=== PATIENT | female | born 1935 | race Caucasian/White ===

== ENCOUNTER 2016-09-05 23:02 | Emergency (ER) | payer OTHER ==
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
--- NOTE | 2016-09-06 00:08 | CT SCAN REPORT ---
EXAMINATION: CT HEAD WITHOUT CONTRAST CLINICAL INFORMATION: Altered mental status. EtOH. COMPARISON: None TECHNIQUE: Contiguous axial imaging was performed from the skull base to vertex without intravenous administration of contrast. DLP: 610.15 mGy-cm FINDINGS: There is no evidence of acute intracranial hemorrhage or territorial infarction. No abnormal mass effect or midline shift is seen. Escalera to white matter differentiation is well preserved. No extra-axial fluid collections are identified. There is atrophy with prominence of the ventricles and the sulci and hypodensity of the periventricular white matter due to chronic small vessel ischemic disease. There is vascular calcifications of the internal carotid arteries bilaterally. The osseous structures and soft tissues are normal. The mastoid air cells and visualized portions of the paranasal sinuses are well aerated. IMPRESSION: No acute intracranial pathology.
[2016-09-06 00:32] LABS: ABSOLUTE BASOPHIL COUNT 0 /CUMM (0.0-0.2); ABSOLUTE EOSINOPHIL COUNT 0.1 /CUMM (0.0-0.7); ABSOLUTE GRANULOCYTE CT 4.8 /CUMM (1.4-6.5); ABSOLUTE LYMPH COUNT 1.6 /CUMM (1.2-3.4); ABSOLUTE MONOCYTE COUNT 0.6 /CUMM (0.10-0.60); BASOPHIL % 0.5 % (0.0-2.0); EOSINOPHIL % 2.1 % (0-5); GRANULOCYTE % 67.3 % (42.2-75.2); HEMATOCRIT 30.1 % (37-47); MEAN CORPUSCULAR HGB 24.7 PG (27.0-31.0); MEAN CORPUSCULAR HGB CONC 31.5 G/DL (33.0-37.0); MEAN CORPUSCULAR VOLUME 78.4 FL (81.0-99.0); PLATELET COUNT 397 /CUMM (130-400); RBC DISTRIBUTION WIDTH 14.7 % (11.5-14.5); RED BLOOD CELL CT 3.84 /CUMM (4.20-5.40); WHITE BLOOD CELL COUNT 7.2 /CUMM (4.8-10.8)
[2016-09-06 07:50] VITALS: BP 126/84
== END 2016-09-06 08:00 ==
LOC: ERH 23:02
PROVIDERS: Physician Assistant Medical
DX: F10.129 Alcohol abuse with intoxication, unspecified (principal)
CPT/HCPCS: 80307; G0480

== ENCOUNTER 2016-11-13 14:40 | Emergency (ER) | payer OTHER ==
[~2016-11-13] VITALS: Ht 162.6 cm; Wt 50.3 kg
[2016-11-13] MEDS ORDERED: LIALDA1.2 G1 PO (15:09)
[2016-11-13] MEDS ORDERED: SLOW FE142 MG PO (15:09)
--- NOTE | 2016-11-13 15:09 | ED GENERAL ADULT ---
History of Present Illness General Chief Complaint: Headache Stated Complaint: AGGARWAL/CHILLS Source: patient, old records, friend Exam Limitations: no limitations Vital Signs & Intake/Output Vital Signs & Intake/Output Vital Signs Date Time Temp Pulse Resp B/P B/P Pulse O2 O2 Flow FiO2 Mean Ox Delivery Rate 11/13 1704 99.3 93 18 97/50 95 Room Air 11/13 1653 101.6 95 18 116/57 96 Room Air Room Air 11/13 1620 100.3 11/13 1545 102.2 11/13 1445 102.2 104 20 188/77 96 Room Air Allergies Coded Allergies: meperidine (From DEMEROL) (UNKNOWN 09/05/16) Uncoded Allergies: ?ADDITIONAL ALLERGY (06/10/15) Reconcile Medications Cyanocobalamin (Vitamin B-12) (Cyanocobalamin Injection) 1,000 MCG/ML VIAL 1 ML IM Q 2 WEEKS SUPPLEMENT (Reported) Donepezil HCl (Aricept) 5 MG TABLET 1 TAB PO DAILY MEMORY (Reported) Ferrous Sulfate (Slow Fe) 142 MG (45 MG IRON) TABLET.ER 1 TAB PO DAILY SUPPLEMENT (Reported) Mesalamine (Lialda) 1.2 GRAM TABLET.DR 4 TAB PO DAILY UNKNOWN (Reported) [employer] Fatty Acids/Fish Oil (Fish Oil 1,000 MG Capsule) 340 MG-1,000 MG CAPSULE 1 CAP PO DAILY SUPPLEMENT (Reported) Triage Note: PER PT SUDDEN ONSET OF CHILLS, AND HEADACHE,PT CONSERVATOR AT BEDSIDE, D/T MEMORY IMPAIRMENT, PT ALERT CO BILAT ARM PAIN TEMP 102.2 Triage Nurses Notes Reviewed? yes HPI: Patient was out shopping today when she developed shaking chills. She also began to complain of a headache in both temples that radiated down to her left ear and then down both arms. The headache is throbbing in nature. There are no aggravating or mitigating factors. It radiates as noted above. She rates it as a 4 out of 10. Patient denies any nausea or vomiting. Patient has had a slight nonproductive cough. There is no dysuria. There is no chest pain. Past History Travel History Traveled to [place] past 21 day No Medical History Any Pertinent Medical History? 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 No Review of Systems Review of Systems Constitutional: Reports: see HPI, chills, fever, weakness. EENTM: Reports: no symptoms. Respiratory: Reports: no symptoms. Cardiovascular: Reports: no symptoms. GI: Reports: no symptoms. Genitourinary: Reports: no symptoms. Musculoskeletal: Reports: no symptoms. Skin: Reports: no symptoms. Neurological/Psychological: Reports: see HPI, headache. Hematologic/Endocrine: Reports: no symptoms. Immunologic/Allergic: Reports: no symptoms. All Other Systems: Reviewed and Negative Physical Exam Physical Exam General Appearance: well developed/nourished, alert, awake, anxious, mild distress Head: atraumatic, normal appearance Eyes: Bilateral: PERRL, EOMI. Ears, Nose, Throat: normal pharynx, normal ENT inspection, hearing grossly normal Neck: normal inspection, supple, full range of motion, NO MENENGEAL SIGNS Respiratory: normal breath sounds, chest non-tender, no respiratory distress, lungs clear Cardiovascular: regular rate/rhythm, normal peripheral pulses, systolic murmur Gastrointestinal: normal bowel sounds, soft, non-tender, no organomegaly Back: normal inspection, normal range of motion Extremities: normal inspection, normal capillary refill, normal range of motion, no edema Neurologic/Psych: no motor/sensory deficits, awake, alert, oriented x 3, normal mood/affect Skin: intact, normal color, warm/dry Lymphatic: no anterior cervical janet Core Measures ACS in differential dx? No CVA/TIA Diagnosis: No Severe Sepsis Present: No Septic Shock Present: No Progress Differential Diagnoses I considered the following diagnoses in my evaluation of the patient: [SEPSIS, BACTEREMIA, UTI, PNEUMONIA, VIRAL SYNDROME] Plan of Care: Orders Procedure Date/time Status RAPID VIRAL INFLUENZA A 11/13 1511 Complete Straight Cath 11/13 1508 Active CULTURE,URINE 11/13 1508 Active BLOOD CULTURE 11/13 1508 Active URINALYSIS 11/13 1508 Complete COMPREHENSIVE METABOLIC PANEL 11/13 1508 Complete CBC WITHOUT DIFFERENTIAL 11/13 1508 Complete EKG 11/13 1454 Active Laboratory Tests 11/13/16 1605: Urine Color YEL, Urine Clarity CLEAR, Urine pH 6.0, Ur Specific [place] 1.025, Urine Protein NEG, Urine Ketones TRACE H, Urine Nitrite NEG, Urine Bilirubin NEG, Urine Urobilinogen 0.2, Ur Leukocyte Esterase NEG, Ur Microscopic EXAM NOT REQUIRED, Urine Hemoglobin NEG, Urine Glucose NEG 11/13/16 1529: Anion Gap 15, Estimated GFR > 60, BUN/Creatinine Ratio 17.1, Glucose 88, Calcium 8.9, Total Bilirubin 0.7, AST 30, ALT 30, Alkaline Phosphatase 70, Total Protein 7.5, Albumin 4.2, Globulin 3.3, Albumin/Globulin Ratio 1.3, CBC w Diff NO MAN DIFF REQ, RBC 4.63, MCV 77.4 L, MCH 24.4 L, RDW 21.7 H, MPV 7.6, Gran % 93.7 H, Lymphocytes % 3.7 L, Monocytes % 1.1 L, Eosinophils % 1.4, Basophils % 0.1, Absolute Granulocytes 7.3 H, Absolute Lymphocytes 0.3 L, Absolute Monocytes 0.1 L, Absolute Eosinophils 0.1, Absolute Basophils 0, PUBS MCHC 31.5 L Microbiology 11/13 1640 NASOPHARYN: Influenza Virus A & B Rapid Smear - COMP 11/13 1605 URINE ROUT: Urine Culture - RECD 11/13 1601 BLOOD: Blood Culture - RECD 11/13 1529 BLOOD: Blood Culture - RECD Diagnostic Imaging: Viewed by Me: Radiology Read. Discussed w/RAD: Radiology Read. CXR Impression: PATIENT: REJI BASSETT PRESENT AGE: 80 PATIENT ACCOUNT NO: [id number] : 37 LOCATION: [facility] ORDERING PHYSICIAN: ANGELIA GUTIERREZ MD SERVICE DATE: 11/13/160176 EXAM TYPE: RAD - XRY-PORTABLE CHEST XRAY EXAMINATION: XR PORTABLE CHEST CLINICAL INFORMATION: Cough, fever. Evaluate for pneumonia. COMPARISON: No relevant prior studies are available for comparison. TECHNIQUE: Portable AP view of the chest was obtained. FINDINGS: No airspace consolidation. No pleural effusion or pneumothorax. The cardiomediastinal silhouette is unremarkable. Severe degenerative changes within the bilateral glenohumeral joints. IMPRESSION: No airspace consolidation. DICTATED BY: JAMISON DELCID MD DATE/TIME DICTATED:11/13/161607 PILOT SAFETY INSPECTOR:JOSE ROBERTO DATE/TIME TRANSCRIBED:11/13/161607 CONFIDENTIAL, DO NOT COPY WITHOUT APPROPRIATE AUTHORIZATION. <Electronically signed in Other Vendor System> SIGNED BY: JAMISON DELCID MD 11/13/16 0881 Initial ED EKG: S TACH, NO STT CHANGES. Comments: Patient is feeling much better. There are no more chills. Her headache and her left earache and bilateral arm pain have resolved. Patient feels comfortable going home. Departure Departure Disposition: HOME OR SELF CARE Condition: Stable Clinical Impression Primary Impression: Fever Secondary Impressions: Viral syndrome Referrals: ELA HODGES,ASH Castillo (PCP/Family) Additional Instructions: DRINK PLENY OF FLUIDS TAKE TYLENOL 650MG EVERY 6 HOURS OR 1000MG EVERY 8 HOURS NEEDED FOR FEVER TAKE MOTRIN 400 MG (2 TABS) EVERY 8 HOURS NEEDED FOR FEVER RETURN FOR ANY CONCERNS Departure Forms: Customer Survey General Discharge Information Critical Care Note Critical Care Note Critical Care Time: non-applicable
[2016-11-13] MEDS ORDERED: FISH OIL 1,0001 EACH PO (15:10)
[2016-11-13] MEDS ORDERED: ARICEPT5 M1 PO (15:10)
[2016-11-13] MEDS ORDERED: CYANOCOBAL1000 MCG/2 IM (15:11)
[2016-11-13 15:41] LABS: ABSOLUTE BASOPHIL COUNT 0 /CUMM (0.0-0.2); ABSOLUTE EOSINOPHIL COUNT 0.1 /CUMM (0.0-0.7); ABSOLUTE GRANULOCYTE CT 7.3 /CUMM (1.4-6.5); ABSOLUTE LYMPH COUNT 0.3 /CUMM (1.2-3.4); ABSOLUTE MONOCYTE COUNT 0.1 /CUMM (0.10-0.60); BASOPHIL % 0.1 % (0.0-2.0); EOSINOPHIL % 1.4 % (0-5); GRANULOCYTE % 93.7 % (42.2-75.2); HEMATOCRIT 35.8 % (37-47); MEAN CORPUSCULAR HGB 24.4 PG (27.0-31.0); MEAN CORPUSCULAR HGB CONC 31.5 G/DL (33.0-37.0); MEAN CORPUSCULAR VOLUME 77.4 FL (81.0-99.0); MEAN PLATELET VOLUME 7.6 FL (7.4-10.4); PLATELET COUNT 228 /CUMM (130-400); RBC DISTRIBUTION WIDTH 21.7 % (11.5-14.5); RED BLOOD CELL CT 4.63 /CUMM (4.20-5.40)
[2016-11-13 16:05] LABS: WHITE BLOOD CELL COUNT 7.8 /CUMM (4.8-10.8)
--- NOTE | 2016-11-13 16:15 | RADIOLOGY REPORT ---
EXAMINATION: XR PORTABLE CHEST CLINICAL INFORMATION: Cough, fever. Evaluate for pneumonia. COMPARISON: No relevant prior studies are available for comparison. TECHNIQUE: Portable AP view of the chest was obtained. FINDINGS: No airspace consolidation. No pleural effusion or pneumothorax. The cardiomediastinal silhouette is unremarkable. Severe degenerative changes within the bilateral glenohumeral joints. IMPRESSION: No airspace consolidation.
[2016-11-13 17:04] VITALS: BP 97/50
== END 2016-11-13 17:50 ==
LOC: ERH 14:40
PROVIDERS: Emergency Medicine
DX: B34.9 Viral infection, unspecified (principal); R50.9 Fever, unspecified; R05 Cough
CPT/HCPCS: 81003; 87040; 87086; 87804; 87804-59; 93005; 93010; 96374; J0131

== ENCOUNTER 2016-11-14 16:19 | Inpatient (IN) | payer OTHER ==
[~2016-11-14] VITALS: Ht 152.4 cm; Wt 50.3 kg
[~2016-11-14 16:19] MED LIST: ARICEPT5 M1 PO; CYANOCOBAL1000 MCG/2 IM; FISH OIL 1,0001 EACH PO; LIALDA1.2 G1 PO; SLOW FE142 MG PO
--- NOTE | 2016-11-14 16:25 | NUR ---
PT HERE FOR ADMIT FOR SEPSIS PER DR. MAHMOOD. PT IN ED FOR SAME S/S YESTERDAY AND WOULD LIKE PT ADMITED.
--- NOTE | 2016-11-14 17:06 | NUR ---
PT FRIEND TO ROOM STATES PT'S PAIN IN HER EARS IS GETTING WORSE DR. DIETZ AWARE PT GIVEN APAP
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
--- NOTE | 2016-11-14 17:38 | ED GENERAL ADULT ---
History of Present Illness General Chief Complaint: General Adult Stated Complaint: CHILLS Source: patient, family Exam Limitations: no limitations Allergies Coded Allergies: meperidine (From DEMEROL) (UNKNOWN 09/05/16) Reconcile Medications Cyanocobalamin (Vitamin B-12) (Cyanocobalamin Injection) 1,000 MCG/ML VIAL 1 ML IM Q 2 WEEKS SUPPLEMENT (Reported) Donepezil HCl (Aricept) 5 MG TABLET 1 TAB PO DAILY MEMORY (Reported) Ferrous Sulfate (Slow Fe) 142 MG (45 MG IRON) TABLET.ER 1 TAB PO DAILY SUPPLEMENT (Reported) Mesalamine (Lialda) 1.2 GRAM TABLET.DR 4 TAB PO DAILY UNKNOWN (Reported) Waverly-3 Fatty Acids/Fish Oil (Fish Oil 1,000 MG Capsule) 340 MG-1,000 MG CAPSULE 1 CAP PO DAILY SUPPLEMENT (Reported) Triage Note: PT HERE FOR ADMIT FOR SEPSIS PER DR. MAHMOOD. PT IN ED FOR SAME S/S YESTERDAY AND WOULD LIKE PT ADMITED. Triage Nurses Notes Reviewed? yes Onset: Abrupt Duration: day(s): Timing: recent history HPI: 11/14/16 6:30 PM This is a 80-year-old female who presents to the emergency department for fever, chills, rigors, she also has prollyarthralgias, left ear pain, and back pain. The onset of the symptoms were abrupt, the duration has been 72 hours, the severity is significant as his symptoms required her to come to the emergency department for care. The patient was seen and evaluated here yesterday. She was also seen by her primary care doctor today. He advised her to come to the hospital for admission. (AMY DIETZ DO) Vital Signs & Intake/Output Vital Signs & Intake/Output Vital Signs Date Time Temp Pulse Resp B/P B/P Pulse O2 O2 Flow FiO2 Mean Ox Delivery Rate 11/15 1522 98.9 84 20 120/70 94 Room Air 11/15 0602 99.8 83 20 100/58 98 Room Air 11/14 2330 Room Air 11/14 2322 99.1 85 20 100/58 95 Room Air 11/14 2228 98.8 88 18 96/56 94 Room Air 11/14 2051 100.6 11/14 2008 100.7 95 18 110/57 96 Room Air 11/14 1709 99.6 11/14 1709 99.6 ED Intake and Output 11/15 0000 11/14 1200 Intake Total 1300 Output Total Balance 1300 Intake, IV 1000 Intake, Oral 300 Patient 111 lb Weight Weight Reported by Patient Measurement Method Past History Travel History Traveled to [place] past 21 day No Medical History Any Pertinent Medical History? see below for history Neurological: MEMORY PROBLEMS EENT: NONE Cardiovascular: hyperlipidemia Respiratory: NONE Gastrointestinal: colitis Hepatic: NONE Renal: NONE Musculoskeletal: disk herniation Psychiatric: NONE Endocrine: NONE Blood Disorders: anemia Cancer(s): NONE FURNITURE PAINTER/Reproductive: NONE Surgical History Surgical History: non-contributory, N Psychosocial History What is your primary language [place] Tobacco Use: Never used ETOH Use: occasional use Illicit Drug Use: denies illicit drug use Family History Hx Contributory? No (AMY DIETZ DO) Review of Systems Review of Systems Constitutional: Reports: fever, malaise, weakness. EENTM: Reports: ear pain. Respiratory: Denies: short of breath. Cardiovascular: Denies: chest pain. GI: Denies: abdominal pain. Genitourinary: Reports: no symptoms. Musculoskeletal: Reports: joint pain, muscle pain. Skin: Reports: no symptoms. Neurological/Psychological: Denies: headache. Hematologic/Endocrine: Denies: bruising, bleeding. (AMY DIETZ DO) Physical Exam Physical Exam General Appearance: alert, awake, anxious, moderate distress Head: atraumatic, normal appearance Eyes: Bilateral: normal appearance, PERRL, EOMI. Ears, Nose, Throat: normal pharynx, normal ENT inspection, LEFT TM NORMAL Neck: normal inspection, supple, full range of motion Respiratory: chest non-tender, no respiratory distress Cardiovascular: regular rate/rhythm Peripheral Pulses: 4+ radial (R), 4+ radial (L) Gastrointestinal: soft, non-tender Back: decreased range of motion, TENDERNESS LUMBAR SPINE Extremities: normal inspection, normal range of motion, no edema Neurologic/Psych: no motor/sensory deficits, awake, alert, oriented x 3 Skin: intact, normal color, warm/dry Core Measures ACS in differential dx? No CVA/TIA Diagnosis: No Severe Sepsis Present: No Septic Shock Present: No (AMY DIETZ DO) Progress Differential Diagnoses I considered the following diagnoses in my evaluation of the patient: [ Diverticulitis, sepsis, intra-abdominal abscess, discitis, epidural abscess, viral syndrome] Initial ED EKG: NSR (AMY DIETZ DO) Plan of Care: Orders Procedure Date/time Status CBC WITHOUT DIFFERENTIAL 11/16 0600 Active BASIC ELECTROLYTES PLUS BUN&CR 11/16 0600 Active Regular Diet 11/15 B Active House Staff 11/15 0734 Active THYROID STIMULATING HORMONE 11/15 0700 Complete CORTISOL AM 11/15 0700 Complete CBC WITHOUT DIFFERENTIAL 11/15 0600 Complete BASIC ELECTROLYTES PLUS BUN&CR 11/15 0600 Complete PT Evaluate & Treat 11/15 UNK Active PT EVAL LOW COMPLEX 20 MIN 11/15 UNK Complete Gait Training 11/15 UNK Complete Lab Add-on Test 11/15 UNK Active Patient Safety Monitor 11/15 UNK Active Vital Signs 11/14 2348 Complete Teach/Educate 11/14 234 Active Pain Treatment and Response 11/14 234 Active Nutritional Intake, Monitor 11/14 234 Active Isolation 11/14 2348 Active Intake & Output 11/14 2348 Complete Patient Care Conference 11/14 2348 Active Activity/Ambulation 11/14 2348 Active Intake & Output 11/14 2236 Active Pathway - chart 11/14 2154 Active Pathway - chart 11/14 215 Active House Staff 11/14 215 Active Saline Lock 11/14 2146 Active Misc Message 11/14 2146 Active ED Holding Orders 11/14 2146 Active Admit to inpatient 11/14 2146 Active Vital Signs 11/14 2146 Active Code Status 11/14 2146 Active Patient Data 11/14 211 Active Patient Data 11/14 205 Active Add-on Test (ER Only) 11/14 2044 Active RAPID VIRAL INFLUENZA A 11/14 2016 Complete WESTERGREN SED RATE 11/14 1916 Complete Add-on Test (ER Only) 11/14 1843 Active COMPREHENSIVE METABOLIC PANEL 11/14 1843 Complete CBC WITHOUT DIFFERENTIAL 11/14 1843 Complete EKG 11/14 1843 Active URINE TOTAL PROT/CREAT RATIO 11/14 1745 Complete URINE LYTES, SPOT 11/14 1745 Complete CULTURE,URINE 11/14 1741 Active URINALYSIS 11/14 1741 Complete VTE Mechanical Prophylaxis 11/14 UNK Active Current Medications Sig/Isael Start time Last Medication Dose Stop Time Status Admin Cyanocobalamin 1,000 MCG Q 2 WEEKS 11/28 1000 AC (Vitamin B12) Enoxaparin Sodium 40 MG 1500 11/15 1502 AC (Lovenox) Donepezil HCl 5 MG DAILY 11/15 1000 AC 11/15 (Aricept) 0924 Ferrous Sulfate 325 MG DAILY 11/15 1000 AC 11/15 (Feosol) 0924 Fish Oil 1,050 MG DAILY 11/15 1000 AC 11/15 (Waverly-3) 0924 Mesalamine 2,400 MG DAILY 11/15 1000 AC 11/15 (Delzicol) 09 Acetaminophen 650 MG Q6P PRN 11/14 220 AC (Tylenol) Acetaminophen 1,000 MG ONCE ONE 11/14 184 CAN (Ofirmev) 11/14 184 Laboratory Tests 11/15/16 0700: Anion Gap 9, Estimated GFR > 60, BUN/Creatinine Ratio 26.7 H, TSH 3.080, Cortisol AM Sample 22.6, CBC w Diff MAN DIFF ORDERED, RBC 4.33, MCV 77.5 L, MCH 24.9 L, RDW 21.9 H, MPV 8.2, Gran % 88.2 H, Lymphocytes % 5.6 L, Monocytes % 4.2, Eosinophils % 2.0, Basophils % 0 L, Absolute Granulocytes 3.5, Segmented Neutrophils 71, Band Neutrophils 17 H, Absolute Lymphocytes 0.2 L, Lymphocytes 6 L, Monocytes 4, Absolute Monocytes 0.2, Eosinophils 2, Absolute Eosinophils 0.1, Absolute Basophils 0, Platelet Estimate ADEQUATE, Hypochromic-Microcytic 1+ , Microcytic Cells 1+, PUBS MCHC 32.1 L 11/15/16 0600: Ur Random Creatinine Cancelled, U Random Total Protein Cancelled, Ur Random Sodium Cancelled, Ur Random Potassium Cancelled, Fraction Sodium Excret Cancelled 11/14/16 1916: Anion Gap 9, Estimated GFR > 60, BUN/Creatinine Ratio 28.3 H, Glucose 93, Calcium 8.3 L, Total Bilirubin 0.5, AST 40 H, ALT 39, Alkaline Phosphatase 66, Total Protein 6.1 L, Albumin 3.2 L, Globulin 2.9, Albumin/Globulin Ratio 1.1, CBC w Diff NO MAN DIFF REQ, RBC 4.05 L, MCV 76.9 L, MCH 24.7 L, RDW 21.7 H, MPV 7.3 L, Gran % 94.1 H, Lymphocytes % 2.7 L, Monocytes % 1.1 L, Eosinophils % 2.1, Basophils % 0 L, Absolute Granulocytes 5.5, Absolute Lymphocytes 0.2 L, Absolute Monocytes 0.1 L, Absolute Eosinophils 0.1, Absolute Basophils 0, PUBS MCHC 32.2 L, ESR Westergren 9 11/14/161744: Urine Color YEL, Urine Clarity CLEAR, Urine pH 5.5, Ur Specific [place] >= 1.030 , Urine Protein 100 H, Urine Ketones NEG, Urine Nitrite NEG, Urine Bilirubin NEG, Urine Urobilinogen 0.2, Ur Leukocyte Esterase NEG, Ur Microscopic SEDIMENT EXAMINED, Urine RBC 1-3, Urine WBC 1-3 H, Ur Epithelial Cells FEW, Urine Bacteria MANY H, Hyaline Casts 1-3 H, Granular Casts 1-3 H, Urine Hemoglobin NEG, Urine Glucose NEG 11/14/161744: Ur Random Creatinine 133.4, U Random Total Protein 55 H, Ur Random Sodium 85, Ur Random Potassium 75.8, Protein/Creatinin Ratio 0.4 H, Fraction Sodium Excret 0.3 Microbiology 11/14 2046 NASOPHARYN: Influenza Virus A & B Rapid Smear - COMP 11/14 1744 URINE ROUT: Urine Culture - RES Departure Departure Disposition: STILL A PATIENT Condition: Stable Referrals: ELA HODGES,ASH Castillo (PCP/Family) Departure Forms: Customer Survey General Discharge Information Admission Note Spoke With: ASH MAHMOOD MD Documentation of Exam: Documentation of any treatments & extenuating circumstances including Concerns Regarding Discharge (functional status, medication knowledge or non-compliance, living conditions, etc.) that warrant an admission rather than observation: [The patient needs admission for IV fluids, IV analgesics, antipyretics, further evaluation to rule out sepsis] Patient signed out to Dr. Prater at 7 PM (AMY DIETZ DO) Departure Clinical Impression Primary Impression: Hyponatremia Secondary Impressions: SIRS (systemic inflammatory response syndrome) Admission Note Documentation of Exam: Documentation of any treatments & extenuating circumstances including Concerns Regarding Discharge (functional status, medication knowledge or non-compliance, living conditions, etc.) that warrant an admission rather than observation: Pt with hyponatremia, meets criteria for SIRS, and has failed outpatient management , and will likely need more than a [address] mahmood (HEATH HODGES,AJIT Cardona) Critical Care Note Critical Care Note Critical Care Time: non-applicable (AMY DIETZ DO)
--- NOTE | 2016-11-14 19:19 | NUR ---
LABS DRAWN AND SENT TO LAB SST, LAV, AND BLUE DRAWN AND SENT
[2016-11-14 19:30] LABS: ABSOLUTE BASOPHIL COUNT 0 /CUMM (0.0-0.2); ABSOLUTE EOSINOPHIL COUNT 0.1 /CUMM (0.0-0.7); ABSOLUTE GRANULOCYTE CT 5.5 /CUMM (1.4-6.5); ABSOLUTE LYMPH COUNT 0.2 /CUMM (1.2-3.4); ABSOLUTE MONOCYTE COUNT 0.1 /CUMM (0.10-0.60); BASOPHIL % 0 % (0.0-2.0); EOSINOPHIL % 2.1 % (0-5); HEMATOCRIT 31.1 % (37-47); MEAN CORPUSCULAR HGB 24.7 PG (27.0-31.0); MEAN CORPUSCULAR HGB CONC 32.2 G/DL (33.0-37.0); MEAN CORPUSCULAR VOLUME 76.9 FL (81.0-99.0); MEAN PLATELET VOLUME 7.3 FL (7.4-10.4); PLATELET COUNT 175 /CUMM (130-400); RBC DISTRIBUTION WIDTH 21.7 % (11.5-14.5); RED BLOOD CELL CT 4.05 /CUMM (4.20-5.40); WHITE BLOOD CELL COUNT 5.8 /CUMM (4.8-10.8)
[2016-11-14 19:42] LABS: GRANULOCYTE % 94.1 % (42.2-75.2)
--- NOTE | 2016-11-14 19:45 | NUR ---
IV EST, PT MEDICATED WITH TORADOL PER EMAR FOR FEVER AND BILAT EAR PAIN. NS INFUSING PER EMAR.
--- NOTE | 2016-11-14 20:09 | RADIOLOGY REPORT ---
EXAMINATION: XR PORTABLE CHEST CLINICAL INFORMATION: Fever and right gutters. COMPARISON: Chest x-ray 11/13/2016. TECHNIQUE: Portable frontal view of the chest was obtained. FINDINGS: The lungs are well-expanded and clear without focal airspace consolidation. No pleural effusions or pneumothoraces are identified. Cardiomediastinal contours are within normal limits. Soft tissues are unremarkable. No acute osseous abnormality is identified. Redemonstrated are severe degenerative changes involving the bilateral glenohumeral joints. IMPRESSION: No acute pulmonary process.
--- NOTE | 2016-11-14 20:22 | NUR ---
PT TO CAT SCAN BY STRETCHER.
--- NOTE | 2016-11-14 20:51 | NUR ---
PT RETURNED FROM CT, FLU SWAB OBTAINED AND SENT TO LAB.
--- NOTE | 2016-11-14 21:04 | CT SCAN REPORT ---
EXAMINATION: CT HEAD WITHOUT CONTRAST CLINICAL INFORMATION: Headache. COMPARISON: CT scan of the head 09/05/2016. TECHNIQUE: Contiguous axial imaging was performed from the skull base to vertex without intravenous administration of contrast. DLP: 600.71 mGy-cm FINDINGS: There is no acute intracranial hemorrhage or abnormal extra-axial collection. No intracranial mass effect or midline shift. Lateral and third ventricles are slightly prominent and there is proportionate prominence of the subarachnoid spaces reflecting a mild degree of global parenchymal volume loss. There is ill-defined hypoattenuation within the periventricular white matter that most likely represents a chronic manifestation of small vessel ischemia. Escalera-white matter differentiation is grossly preserved and there is no evidence of acute territorial infarct. The calvarium and skull base are intact. Mastoid air cells and middle ear cavities are well aerated. There is mild paranasal sinus disease within ethmoid air cells and sphenoid sinus. IMPRESSION: There is mild global parenchymal volume loss and chronic small vessel ischemic changes within the periventricular white matter. No evidence of acute territorial infarct or hemorrhage.
--- NOTE | 2016-11-14 21:27 | CT SCAN REPORT ---
EXAMINATION: CT ABDOMEN AND PELVIS WITHOUT CONTRAST CLINICAL INFORMATION: Fever and right wrist. Evaluate for diverticulitis. COMPARISON: CT abdomen and pelvis without contrast 06/10/2015. TECHNIQUE: Multidetector volumetric imaging was performed from the superior aspect of the liver through the pubic symphysis. Sagittal and coronal reformatted images were obtained on the technologist's workstation. DLP: 231 mGy-cm FINDINGS: Limited evaluation of the solid abdominal viscera in the absence of intravenous contrast. LUNG BASES: Bibasilar subsegmental atelectasis. LIVER, GALLBLADDER, AND BILIARY TREE: The liver is normal in size, shape, and attenuation. No focal hepatic lesion or biliary ductal dilatation is present. The gallbladder is unremarkable without evidence of radiopaque gallstones, gallbladder wall thickening, or obvious pericholecystic inflammatory changes. PANCREAS: Unremarkable. SPLEEN: Unremarkable. ADRENAL GLANDS: Unremarkable. KIDNEYS AND URETERS: Evaluation of the bilateral kidneys and renal collecting systems is notable for several right-sided simple renal cortical cysts visualized measuring up to 3.5 cm within the lower pole of the right kidney. Within the midpole of the right kidney, there is a 2.4 cm simple renal cortical cyst. No renal or ureteral stones are identified and there is no hydroureteronephrosis of either kidney or renal collecting system. BLADDER: Unremarkable. GASTROINTESTINAL TRACT: Evaluation of the gastrointestinal system demonstrates pancolonic diverticulosis, notably involving the ascending and transverse colon as well as the descending and rectosigmoid colon, without secondary signs of acute diverticulitis. Abdominal and pelvic bowel loops are normal in caliber, without findings indicative of small bowel obstruction or ileus. Incidental note is made of a fat and small bowel containing left inguinal hernia which otherwise appears unremarkable. No organizing intra-abdominal or pelvic fluid collections and no free intraperitoneal air. Nonvisualization of the appendix. No acute inflammatory changes within the right lower quadrant of the abdomen. ABDOMINAL WALL: Fat and small bowel containing left inguinal hernia. LYMPH NODES: No significant abdominal or pelvic adenopathy. VASCULAR: Scattered atherosclerosis of the abdominal aorta and its branching vessels, without aneurysmal dilatation. PELVIC VISCERA: Unremarkable. OSSEOUS STRUCTURES: No acute osseous abnormality. Chronic appearing compression deformities involving the T12 and L1 vertebral bodies with approximately 50% disc height loss of the L1 vertebral body. Moderate to severe multilevel degenerative changes of the lumbar spine. No acute osseous abnormality. IMPRESSION: No acute findings within the abdomen or pelvis to explain patient symptomatology. However, please note that evaluation of the abdomen and pelvis is limited given lack of intravenous contrast. Pancolonic diverticulosis, without secondary signs of acute diverticulitis. Hypoattenuating lesions within the right kidney, indicative of simple renal cortical cysts.
--- NOTE | 2016-11-14 21:39 | NUR ---
HOUSE STAFF AT BEDSIDE.
--- NOTE | 2016-11-14 21:42 | CT SCAN REPORT ---
EXAMINATION: CT LUMBAR SPINE WITHOUT CONTRAST CLINICAL INFORMATION: Fever and back pain. Evaluate for abscess. COMPARISON: Lumbar spine radiographs 03/07/2016. TECHNIQUE: Helical non-contrast CT images were obtained through the lumbar spine and 1.25 and 2.5 mm axial reconstructions were reviewed along with sagittal and coronal MPRs. DLP: 548.03 mGy-cm FINDINGS: There is transitional spinal anatomy with hypoplastic ribs at L1 and partial lumbarization of the S1 segment. There is an acute on chronic fracture involving the L2 vertebra. Specifically there is a transverse lucency that undermines the upper L2 endplate. There is anterior wedging of L1 and L2 with approximately 50% vertebral body height loss anteriorly at L1 and 50% vertebral body height loss anteriorly at L2. There is chronic impaction of the lower L4 endplate causing 20% vertebral body height loss centrally. No anterior wedging at this level. There is grade 1 anterolisthesis of L4 on L5 related to advanced facet degenerative changes at this level. Vertebral alignment is otherwise maintained in the sagittal dimension. Although the canal is not well assessed due to the absence of intrathecal contrast there is no evidence of bony canal compromise. There is moderate symmetric compression of the foraminal segments of both L2 nerve roots related to multifactorial degenerative changes. There is also moderate compression of the foraminal segment of the left L4 nerve root primarily related to a diffusely bulging disc in concert with bilateral facet degenerative change. Limited visualization of the retroperitoneal structures demonstrates heavily calcified atheromatous plaque involving the abdominal aorta and iliac vessels. Sacroiliac joints are symmetric. IMPRESSION: There is an acute on chronic fracture involving the L2 vertebra. Specifically there is a new transverse lucency that undermines the upper L2 endplate. There is anterior wedging of the L1 and L2 vertebral bodies with approximately 50% vertebral body height loss anteriorly at L1 and 50% vertebral body height loss anteriorly at L2. There is grade 1 anterolisthesis of L4 on L5 related to advanced facet degenerative changes at this level. Grossly no evidence of canal compromise. Varying degrees of neuroforaminal encroachment as described above.
--- NOTE | 2016-11-14 22:07 | NUR ---
2ND NS INFUSING PER EMAR.
--- NOTE | 2016-11-14 22:19 | NUR ---
PT TO ROOM 219 BED 2
--- NOTE | 2016-11-14 22:36 | NUR ---
REPORT GIVEN TO LIZANDRO CUNHA TO [facility], [employer] CALLED FOR TRANSPORT.
[2016-11-14 23:22] VITALS: BP 100/58
--- NOTE | 2016-11-14 23:26 | History & Physical ---
MARGO NICOLE 11/14/16 2326: General Information and HPI MD Statement: I have seen and personally examined REJI ANDREWS DR and documented this H&P. The patient is a 80 year old F who presented with a patient stated chief complaint of fever, shaking chills, rigors arthralgias, left ear pain for 2 days Source of Information: patient Exam Limitations: no limitations History of Present Illness: This is a 80-year-old female with past medical history significant for dementia, colitis, hyperlipidemia, disc herniation, anemia was brought to the emergency department with chief complaint of fever, shaking chills, arthralgia for 2 days. Patient was seen in the emergency room one day ago with same complaints. She was sent home from ER after giving IV fluids. She followed up with her primary care doctor Dr. salvador who advised her to go to the emergency room. Patient reported ongoing fever associated with shaking chills for couple of days. Patient also reported Arthralgias and body aches. She is feeling very tired. She denies any cough, difficulty breathing, chest pain, racing of heart. She denies any phlegm production, sinus tenderness, headaches. Denies any sick contacts or travel history. Patient also reported back pain which is new however denies any urinary or bowel incontinence. Patient also reported left ear pain which is 10 out of 10, sudden in onset. Denies any nausea, vomiting, abdominal pain, change in bladder or bowel habits, constipation, diarrhea, leg edema. Denies any smoking history, alcohol intake, illicit drug abuse. She lives alone and takes care of herself. She reported problems with her memory. Allergies/Medications Allergies: Coded Allergies: meperidine (From DEMEROL) (UNKNOWN 09/05/16) Home Med list Cyanocobalamin (Vitamin B-12) (Cyanocobalamin Injection) 1,000 MCG/ML VIAL 1 ML IM Q 2 WEEKS SUPPLEMENT (Reported) Donepezil HCl (Aricept) 5 MG TABLET 1 TAB PO DAILY MEMORY (Reported) Ferrous Sulfate (Slow Fe) 142 MG (45 MG IRON) TABLET.ER 1 TAB PO DAILY SUPPLEMENT (Reported) Mesalamine (Lialda) 1.2 GRAM TABLET. 4 TAB PO DAILY UNKNOWN (Reported) Michie-3 Fatty Acids/Fish Oil (Fish Oil 1,000 MG Capsule) 340 MG-1,000 MG CAPSULE 1 CAP PO DAILY SUPPLEMENT (Reported) Compliance With Home Meds: GOOD Past History Travel History Traveled to [place] past 21 day No Medical History Neurological: MEMORY PROBLEMS EENT: NONE Cardiovascular: hyperlipidemia Respiratory: NONE Gastrointestinal: colitis Hepatic: NONE Renal: NONE Musculoskeletal: disk herniation Psychiatric: NONE Endocrine: NONE Blood Disorders: anemia Cancer(s): NONE SHOE PACKER/Reproductive: NONE Surgical History Surgical History: non-contributory, N Past Family/Social History Psychosocial History Smoking Status: Never Smoked ETOH Use: occasional use Illicit Drug Use: denies illicit drug use Review of Systems Review of Systems Constitutional: Reports: chills, fever, malaise, weakness. Denies: diaphoresis, unexplained weight loss. EENTM: Denies: see HPI. Cardiovascular: Denies: chest pain, edema, orthopena, palpitations, peripheral edema, syncope. Respiratory: Denies: cough, hemoptysis, orthopnea, short of breath, sputum production, stridor, wheezing. GI: Denies: abdominal pain, bloating, constipation, diarrhea, nausea, vomiting. Genitourinary: Denies: dysuria, frequency, urgency. Musculoskeletal: Reports: back pain. Denies: gout, joint pain, joint swelling. Skin: Denies: see HPI. Neurological/Psychological: Reports: dementia, emotional problems. Denies: anxiety, ataxia, confusion, depressed, headache, numbness, tingling, tremors, weakness. Exam & Diagnostic Data Last 24 Hrs of Vital Signs/I&O Vital Signs Date Time Temp Pulse Resp B/P B/P Pulse O2 O2 Flow FiO2 Mean Ox Delivery Rate 11/15 0602 99.8 83 20 100/58 98 Room Air 11/14 2330 Room Air 11/14 2322 99.1 85 20 100/58 95 Room Air 11/14 2228 98.8 88 18 96/56 94 Room Air 11/14 2051 100.6 11/14 2008 100.7 95 18 110/57 96 Room Air 11/14 1709 99.6 11/14 170 99.6 11/14 1626 98.6 83 16 106/71 95 Intake & Output 11/15 0800 11/15 0000 11/14 1600 Intake Total 900 1300 Output Total Balance 900 1300 Intake, IV 800 1000 Intake, Oral 100 300 Patient 50.349 kg Weight Weight Reported by Patient Measurement Method Physical Exam General Appearance Alert, Oriented X3, Cooperative, No Acute Distress Skin No Rashes, No Breakdown, No Significant Lesion HEENT Atraumatic, PERRLA, EOMI, Mucous Membr. moist/pink Neck Supple, No JVD Lymphatic Axillary nl, Cervical nl Cardiovascular Regular Rate, Normal S1, Normal S2, No Murmurs Lungs Normal Air Movement Abdomen Normal Bowel Sounds, Soft, No Tenderness Neurological Normal Speech, Strength at 5/5 X4 Ext, Normal Tone, Sensation Intact, Cranial Nerves 3-12 NL, Reflexes 2+ Extremities No Clubbing, No Cyanosis, No Edema Vascular Normal Pulses, Pulses Symmetrical Last 24 Hrs of Labs/Clemente: Laboratory Tests 11/15/16 0700: Sodium Pending, Potassium Pending, Chloride Pending, Carbon Dioxide Pending, Anion Gap Pending, BUN Pending, Creatinine Pending, BUN/Creatinine Ratio Pending , CBC w Diff Pending, WBC Pending, RBC Pending, Hgb Pending, Hct Pending, MCV Pending, MCH Pending, RDW Pending, Plt Count Pending, MPV Pending, PUBS MCHC Pending 11/14/16 1916: Anion Gap 9, Estimated GFR > 60, BUN/Creatinine Ratio 28.3 H, Glucose 93, Calcium 8.3 L, Total Bilirubin 0.5, AST 40 H, ALT 39, Alkaline Phosphatase 66, Total Protein 6.1 L, Albumin 3.2 L, Globulin 2.9, Albumin/Globulin Ratio 1.1, CBC w Diff NO MAN DIFF REQ, RBC 4.05 L, MCV 76.9 L, MCH 24.7 L, RDW 21.7 H, MPV 7.3 L, Gran % 94.1 H, Lymphocytes % 2.7 L, Monocytes % 1.1 L, Eosinophils % 2.1, Basophils % 0 L, Absolute Granulocytes 5.5, Absolute Lymphocytes 0.2 L, Absolute Monocytes 0.1 L, Absolute Eosinophils 0.1, Absolute Basophils 0, PUBS MCHC 32.2 L, ESR Westergren 9 11/14/16 1745: Urine Color YEL, Urine Clarity CLEAR, Urine pH 5.5, Ur Specific [place] >= 1.030 , Urine Protein 100 H, Urine Ketones NEG, Urine Nitrite NEG, Urine Bilirubin NEG, Urine Urobilinogen 0.2, Ur Leukocyte Esterase NEG, Ur Microscopic SEDIMENT EXAMINED, Urine RBC 1-3, Urine WBC 1-3 H, Ur Epithelial Cells FEW, Urine Bacteria MANY H, Hyaline Casts 1-3 H, Granular Casts 1-3 H, Urine Hemoglobin NEG, Urine Glucose NEG Microbiology 11/14 2046 NASOPHARYN: Influenza Virus A & B Rapid Smear - COMP 11/14 1744 URINE ROUT: Urine Culture - RECD Assessment/Plan Assessment: This is a 80-year-old female with past medical history significant for dementia, colitis, hyperlipidemia, disc herniation, anemia was brought to the emergency department with chief complaint of fever, shaking chills, arthralgia for 2 days. Patient was seen in the emergency room one day ago with same complaints. She was sent home from ER after giving IV fluids. She followed up with her primary care doctor Dr. salvador who advised her to go to the emergency room. Vitals on admission temperature 98.6 [increased to 100.7], pulse rate 83, respiratory rate 16, blood pressure 106/71 saturating 95% on room air. CBC was unremarkable, no leukocytosis, H&H 1031.1. ESR within normal limits. Basic metabolic panel revealed sodium 128, potassium 3.8, bicarbonate 21, BUN/ creatinine 17/0.6. Urinalysis had 1-3 white blood cells with a few epithelial cells and 1-3 hyalin and granular casts. X-ray was clear. Head CT was normal. Abdominal CT- Pancolonic diverticulosis, without secondary signs of acute diverticulitis. Problem list 1. Lethargy with fever and chills. 2. Euvolemic hyponatremia. 3. Anemia 4. Ulcerative colitis 5. Mild cognitive impairment 6. Hyperlipidemia Lethargic with fever and chills Patient has reported fever, shaking chills associated with body aches for couple of days. However her WBC count was normal, chest x-ray was normal and urinalysis was normal. No obvious source of infection was found. * Fever, shaking chills, body aches, arthralgias most possibly viral in origin. * Admitted to general med floor for further management. * Monitor vitals closely every shift * Maintain oxygen saturation above 90% * Monitor for fevers, leukocytosis * Rapid flu was negative * Will provide gentle hydration for now * ID consult Hyponatremia * Sodium 128 on admission * Most possibly from dehydration and decreased oral intake. * We will gently hydrate with NS @ 100cc/hour x2 bags. * We will also get a fractional excretion of sodium and ulytes and protein:cr ratio. Ulcerative colitis Continue home dose of mesalamine Mild cognitive impairment Continue home dose of donepezil on sitter now. Anemia Patient usually gets B12 shots every 2 weeks at primary care office Patient is full code DVT prophylaxis alps Regular diet pain pathway As Ranked By This Provider Problem List: 1. Fever 2. Viral syndrome 3. Hyperpyrexia 4. Hyponatremia Core Measures/Miscellaneous Acute Coronary Syndrome ACS Diagnosis: No Cerebrovascular Accident CVA/TIA Diagnosis: No Congestive Heart Failure CHF Diagnosis: No Venous Thromboembolism VTE Risk Factors: Age > 40 [facility] d/t: No contraindications No VTE Pharm Prophylaxis d/t: No contraindications VTE Diagnosis: No VTE Type: NONE VTE Confirmed by (Test): NONE Severe Sepsis Severe Sepsis Present: No Septic Shock Septic Shock Present: No Miscellaneous Documentation Attending Case Discussed With: ASH MAHMOOD MD Primary Care Physician: ASH MAHMOOD MD Patient sees these Specialists none Level of Patient Care: General Medicine COLE MONTANEZ 11/15/16 0748: Resident Review Statement Resident Statement: examined this patient, discussed with administration internship, agreed with administration internship, discussed with family Other Findings: Ms. Andrews is a pleasant 80 year old female w a PMH of ulcerative colitis on mesalamine, and mild cognitive impairment on donepezil 5 mg who was instructed to come emergency department by her primary care physician for evaluation of fever associated with chills. She recently visited the emergency department for similar complaints as well as ear pain, she was treated symptomatically and discharged. An outpatient setting she visited her primary care physician and was treated symptomatically however her symptoms have not resolved and she was instructed to come emergency department for further evaluation. The symptoms going on for approximately the last 3 days. She denies any chest pain, dyspnea, palpitations, lightheadedness, dizziness, diplopia or tinnitus. She also denies any fevers, chills, diaphoresis, nausea or vomiting, as well as diarrhea. She denies any recent travel or sick contacts Vitals on admission temperature 98.6 [increased to 100.7], pulse rate 83, respiratory rate 16, blood pressure 106/71 saturating 95% on room air. Physical exam was benign as dictated above. CBC was unremarkable, no leukocytosis, H&H 10/31.1. ESR within normal limits. Basic metabolic panel revealed sodium 128, potassium 3.8, bicarbonate 21, BUN/ creatinine 17/0.6. Urinalysis had 1-3 white blood cells with a few epithelial cells and 1-3 hyalin and granular casts. The patient had no acute findings on her head CT as well as an abdominal pelvic CT to explain the patient's symptoms. Pancolonic diverticulosis without signs of diverticulitis was identified. CT did have some chronic features of fracture and degeneration without any gross evidence of canal compromise chest x-ray was unremarkable. Problem list assessment and plan Lethargy with fever and chills. * Given the patient's lack of clinical and radiographic evidence to indicate any obvious cause of her symptoms, along with her low-grade fever, I am inclined to think that she has a viral infection which would explain the arthralgias, fatigue and low-grade fever. * Her rapid influenza was negative and she denied any sick contacts, however this does not mean she could not have another virus. * We will gently hydrate for now and monitor in the inpatient setting. * Consider infectious disease consult if patient develops another fever or clinically does not improve. Euvolemic Hyponatremia * The patient did state she had some decreased by mouth intake, and this may explain her hyponatremia. * In August her sodium level was within normal limits, and it decreased slightly her last visit to the ED. * SIADH less likely (no lung Ca or psych meds). * Hypothyroidism and hypoaldosteronism may also cause this, we will get TSH and random cortisol. * We will gently hydrate with NS @ 100cc/hour x2 bags. * We will also get a fractional excretion of sodium and ulytes and protein:cr ratio. Ulcerative colitis/Mild cognitive impairment * Continue home dose of mesalamine and donepezil FULL CODE ALPS for dvt ppx pain path regular diet [facility] 11/15/16 0949: Attending MD Review Statement Attending Statement Attending MD Statement: examined this patient, discuss w/resident/PA/ACOUSTICAL TILE PATTERNMAKER, discussed with family, reviewed EMR data (avail)
[2016-11-15 06:02] VITALS: BP 100/58
--- NOTE | 2016-11-15 06:52 | NUR ---
PT WITH INCREASING CONFUSION THROUGHOUT THE NIGHT. MULTIPLE ATTEMPTS AT OOB WITHOUT USING CALL LOZANO, MULTIPLE ATTEMPTS AT TRYING TO LEAVE. WAS ABLE TO REDIRECT MOST OF THE SHIFT BUT AT 0500, PT BECAME INCREASINGLY AGITATED, STATING "I'M CALLING THE YOUTH MINISTRY DIRECTOR", "I'M CALLING A CAB". PT THINKS SHE IS AT [facility] [place]. 1:1 [facility] INSTITUTED.
[2016-11-15 08:13] LABS: ABSOLUTE BASOPHIL COUNT 0 /CUMM (0.0-0.2); ABSOLUTE EOSINOPHIL COUNT 0.1 /CUMM (0.0-0.7); ABSOLUTE GRANULOCYTE CT 3.5 /CUMM (1.4-6.5); ABSOLUTE LYMPH COUNT 0.2 /CUMM (1.2-3.4); ABSOLUTE MONOCYTE COUNT 0.2 /CUMM (0.10-0.60); BASOPHIL % 0 % (0.0-2.0); GRANULOCYTE % 88.2 % (42.2-75.2); HEMATOCRIT 33.5 % (37-47); MEAN CORPUSCULAR HGB 24.9 PG (27.0-31.0); MEAN CORPUSCULAR HGB CONC 32.1 G/DL (33.0-37.0); MEAN CORPUSCULAR VOLUME 77.5 FL (81.0-99.0); MEAN PLATELET VOLUME 8.2 FL (7.4-10.4); PLATELET COUNT 163 /CUMM (130-400); RBC DISTRIBUTION WIDTH 21.9 % (11.5-14.5); RED BLOOD CELL CT 4.33 /CUMM (4.20-5.40)
--- NOTE | 2016-11-15 09:43 | Admission Certification ---
Admission Certification Certification Statement - As attending physician, I certify that at the time of - admission, based on clinical presentation, severity of - symptoms, need for further diagnostic testing and - therapeutic interventions, and risk of adverse outcomes - without in-hospital treatment, in my clinical assessment, - this patient requires an acute hospital stay for a minimum - of two nights or longer. I have also considered psychsocial - factors such as support system, advanced age, financial - issues, cognitive issues, and failed out-patient treatments, - past re-admission history, safety of patient, and lack of - compliance as applicable. Specific rationale supporting this admission is: Fever and weakness
--- NOTE | 2016-11-15 09:49 | PN- Att Addend ---
Attending Addendum Attending Brief Note Patient reports improved symptoms and she says she feels good today General Appearance: Alert, No Acute Distress Skin: Grossly normal HEENT: PEERLA Neck: Supple, No JVD Cardiovascular: Regular Rate, Normal S1, Normal S2, No Murmurs Lungs: Clear to Auscultation, Normal Air Movement Abdomen: Normal Bowel Sounds, Soft, No Tenderness Neurological: Normal Speech, Strength at 5/5 X4 Ext, Cranial Nerves 3-12 NL, Reflexes 2+ Extremities: No Clubbing, No Cyanosis, No Edema Vascular: Normal Pulses Assessment 80-year-old with history of dementia, colitis, hyperlipidemia, disc herniation, anemia presenting with complaints of fever, chills and arthralgia for 2 days. She was previously seen in the ER with a negative workup and sent home when she had subsequent fevers and was seen in our office and sent to ER for reevaluation. CAT scan is negative except for acute on chronic L2 fracture with possible disc compression. However there are no signs of infection identified. Blood culture 1. His back is negative and urine culture is pending. We will continue to treat her off antibiotics and repeat blood cultures if she has more fevers. Also hyponatremia likely secondary to poor by mouth intake has improved with IV fluids. Plan Discontinue IV fluids Encourage by mouth fluids Repeat blood cultures if recurrent fevers Follow urine culture PT evaluation Continue other home medications DVT prophylaxis Current Medications Sig/Isael Start time Last Medication Dose Route Stop Time Status Admin Acetaminophen 650 MG Q6P PRN 11/14 2200 AC PO Acetaminophen 1,000 MG Q6P PRN 11/14 2200 AC IV Acetaminophen 1,000 MG ONCE ONE 11/14 184 CAN IV 11/14 184 Acetaminophen 650 MG ONCE ONE 11/14 1715 DC 11/14 PO 11/14 171 1709 Cyanocobalamin 1,000 MCG Q 2 WEEKS 11/28 1000 AC IM Donepezil HCl 5 MG DAILY 11/15 1000 AC 11/15 PO 0924 Ferrous Sulfate 325 MG DAILY 11/15 1000 AC 11/15 PO 0924 Fish Oil 1,050 MG DAILY 11/15 1000 AC 11/15 PO 0924 Ketorolac 30 MG ONCE ONE 11/14 184 DC 11/14 Tromethamine IV 11/14 184 194 Mesalamine 2,400 MG DAILY 11/15 1000 AC 11/15 PO 0923 Oxycodone/ 1 TAB Q6P PRN 11/14 2199 AC Acetaminophen PO Sodium Chloride 1,000 ML .Q10H 11/14 2200 AC 11/15 IV 11/15 1759 0922 Sodium Chloride 1,000 ML ONCE ONE 11/14 1845 DC 11/14 IV 11/15 0124 1933 Laboratory Tests 11/15 11/15 11/14 0700 0600 1916 Chemistry Sodium (137 - 145 mmol/L) 136 L 128 L Potassium (3.5 - 5.1 mmol/L) 3.9 3.8 Chloride (98 - 107 mmol/L) 106 97 L Carbon Dioxide (22 - 30 mmol/L) 22 21 L Anion Gap (5 - 16) 9 9 BUN (7 - 17 mg/dL) 16 17 Creatinine (0.5 - 1.0 mg/dL) 0.6 0.6 Estimated GFR (>60 ml/min) > 60 > 60 BUN/Creatinine Ratio (7 - 25 %) 26.7 H 28.3 H Glucose (65 - 99 mg/dL) 93 Calcium (8.4 - 10.2 mg/dL) 8.3 L Total Bilirubin (0.2 - 1.3 mg/dL) 0.5 AST (14 - 36 U/L) 40 H ALT (9 - 52 U/L) 39 Alkaline Phosphatase (<127 U/L) 66 Total Protein (6.3 - 8.2 g/dL) 6.1 L Albumin (3.5 - 5.0 g/dL) 3.2 L Globulin (1.9 - 4.2 gm/dL) 2.9 Albumin/Globulin Ratio (1.1 - 2.2 %) 1.1 TSH (0.270 - 4.200 uIU/mL) 3.080 Cortisol AM Sample (4.46 - 22.7 ug/dL) 22.6 Hematology CBC w Diff Pending NO MAN DIFF REQ WBC (4.8 - 10.8 /CUMM) Pending 5.8 RBC (4.20 - 5.40 /CUMM) Pending 4.05 L Hgb (12.0 - 16.0 G/DL) Pending 10.0 L Hct (37 - 47 %) Pending 31.1 L MCV (81.0 - 99.0 FL) Pending 76.9 L MCH (27.0 - 31.0 PG) Pending 24.7 L RDW (11.5 - 14.5 %) Pending 21.7 H Plt Count (130 - 400 /CUMM) Pending 175 MPV (7.4 - 10.4 FL) Pending 7.3 L Gran % (42.2 - 75.2 %) Pending 94.1 H Lymphocytes % (20.5 - 51.1 %) Pending 2.7 L Monocytes % (1.7 - 9.3 %) Pending 1.1 L Eosinophils % (0 - 5 %) Pending 2.1 Basophils % (0.0 - 2.0 %) Pending 0 L Absolute Granulocytes (1.4 - 6.5 /CUMM) Pending 5.5 Absolute Lymphocytes (1.2 - 3.4 /CUMM) Pending 0.2 L Absolute Monocytes (0.10 - 0.60 /CUMM) Pending 0.1 L Absolute Eosinophils (0.0 - 0.7 /CUMM) Pending 0.1 Absolute Basophils (0.0 - 0.2 /CUMM) Pending 0 PUBS MCHC (33.0 - 37.0 G/DL) Pending 32.2 L ESR Westergren (0 - 20 MM) 9 Urines Ur Random Creatinine Cancelled U Random Total Protein Cancelled Ur Random Sodium Cancelled Ur Random Potassium Cancelled Fraction Sodium Excret Cancelled 11/14 11/14 1745 1745 Urines Urine Color (YEL,AMB,STR) YEL Urine Clarity (CLEAR) CLEAR Urine pH (5.0 - 8.0) 5.5 Ur Specific [place] (1.001 - 1.035) >= 1.030 Urine Protein (NEG,<30 MG/DL) 100 H Urine Ketones (NEG) NEG Urine Nitrite (NEG) NEG Urine Bilirubin (NEG) NEG Urine Urobilinogen (0.1 - 1.0 EU/dl) 0.2 Ur Leukocyte Esterase (NEG) NEG Ur Microscopic SEDIMENT EXAMINED Urine RBC (0 - 5 /HPF) 1-3 Urine WBC (0 - 2 /HPF) 1-3 H Ur Epithelial Cells (NONE,FEW) FEW Urine Bacteria (NEG/NONE) MANY H Hyaline Casts (0/LPF) 1-3 H Granular Casts (NONE /LPF) 1-3 H Urine Hemoglobin (NEG) NEG Ur Random Creatinine (mg/dL) 133.4 U Random Total Protein (0 - 12 mg/dL) 55 H Ur Random Sodium (30 - 90 mmol/L) 85 Ur Random Potassium (mmol/L) 75.8 Protein/Creatinin Ratio (< 0.2) 0.4 H Fraction Sodium Excret (<1% %) 0.3 Urine Glucose (N MG/DL) NEG Vital Signs Date Time Temp Pulse Resp B/P B/P Pulse O2 O2 Flow FiO2 Mean Ox Delivery Rate 11/15 06 99.8 83 20 100/58 98 Room Air 11/14 2330 Room Air 11/14 2322 99.1 85 20 100/58 95 Room Air 11/14 2228 98.8 88 18 96/56 94 Room Air 11/14 2051 100.6 11/14 2008 100.7 95 18 110/57 96 Room Air 11/14 1709 99.6 11/14 1709 99.6 11/14 1626 98.6 83 16 106/71 95
--- NOTE | 2016-11-15 15:00 | NUR ---
PATIENT BECOMING INCREASING AGITATED, LOCKED SELF IN BATHROOM WITH CLOTHES. PATIENT STATING "I'M GETTING DRESSED BECAUSE I HAVE TO GO TO AN IMPORTANT DINNER". PAGED DR CANNON #[id number] AND NURSE FITNESS WORKER TO ASSIST.
--- NOTE | 2016-11-15 15:05 | PN- Housestaff ---
Subjective Follow-up For: Fever and generalized body aches and pains Subjective: No overnight events. This morning patient is alert and awake. She has a sitter because she was trying to get out of bed and confused. This morning she is still confused and does not remember why she was admitted. She offers no complaints. Review of Systems Constitutional: Reports: see HPI. Objective Last 24 Hrs of Vital Signs/I&O Vital Signs Date Time Temp Pulse Resp B/P B/P Pulse O2 O2 Flow FiO2 Mean Ox Delivery Rate 11/15 601 99.8 83 20 100/58 98 Room Air 11/14 2330 Room Air 11/14 2322 99.1 85 20 100/58 95 Room Air 11/14 2228 98.8 88 18 96/56 94 Room Air 11/14 2051 100.6 11/14 2009 100.7 95 18 110/57 96 Room Air 11/14 1709 99.6 11/14 1709 99.6 11/14 1626 98.6 83 16 106/71 95 Intake & Output 11/15 1600 11/15 0800 11/15 0000 Intake Total 900 1300 Output Total Balance 900 1300 Intake, IV 800 1000 Intake, Oral 100 300 Patient 111 lb Weight Weight Reported by Patient Measurement Method Physical Exam General Appearance: Alert, Cooperative, No Acute Distress Skin: No Rashes Neck: Supple Cardiovascular: Regular Rate Lungs: Clear to Auscultation Abdomen: Normal Bowel Sounds, Soft, No Tenderness Neurological: Normal Speech, Sensation Intact, Cranial Nerves 3-12 NL Extremities: No Edema Current Medications: Current Medications Sig/Isael Start time Last Medication Dose Route Stop Time Status Admin Acetaminophen 650 MG Q6P PRN 11/14 2199 AC PO Acetaminophen 1,000 MG Q6P PRN 11/14 2199 DC IV Acetaminophen 1,000 MG ONCE ONE 11/14 1844 CAN IV 11/14 184 Acetaminophen 650 MG ONCE ONE 11/14 171 DC 11/14 PO 11/14 171 1709 Cyanocobalamin 1,000 MCG Q 2 WEEKS 11/28 1000 AC IM Donepezil HCl 5 MG DAILY 11/15 1000 AC 11/15 PO 0924 Ferrous Sulfate 325 MG DAILY 11/15 1000 AC 11/15 PO 0924 Fish Oil 1,050 MG DAILY 11/15 1000 AC 11/15 PO 0924 Ketorolac 30 MG ONCE ONE 11/14 184 DC 11/14 Tromethamine IV 11/14 184 194 Mesalamine 2,400 MG DAILY 11/15 1000 AC 11/15 PO 0923 Oxycodone/ 1 TAB Q6P PRN 11/14 2199 DC Acetaminophen PO Sodium Chloride 1,000 ML .Q10H 11/14 2199 DC 11/15 IV 11/15 1759 0922 Sodium Chloride 1,000 ML ONCE ONE 11/14 1844 DC 11/14 IV 11/15 0124 1933 Last 24 Hrs of Lab/Clemente Results Last 24 Hrs of Labs/Mics: Laboratory Tests 11/15/16 0700: Anion Gap 9, Estimated GFR > 60, BUN/Creatinine Ratio 26.7 H, TSH 3.080, Cortisol AM Sample 22.6, CBC w Diff MAN DIFF ORDERED, RBC 4.33, MCV 77.5 L, MCH 24.9 L, RDW 21.9 H, MPV 8.2, Gran % 88.2 H, Lymphocytes % 5.6 L, Monocytes % 4.2, Eosinophils % 2.0, Basophils % 0 L, Absolute Granulocytes 3.5, Segmented Neutrophils 71, Band Neutrophils 17 H, Absolute Lymphocytes 0.2 L, Lymphocytes 6 L, Monocytes 4, Absolute Monocytes 0.2, Eosinophils 2, Absolute Eosinophils 0.1, Absolute Basophils 0, Platelet Estimate ADEQUATE, Hypochromic-Microcytic 1+ , Microcytic Cells 1+, PUBS MCHC 32.1 L 11/15/16 0600: Ur Random Creatinine Cancelled, U Random Total Protein Cancelled, Ur Random Sodium Cancelled, Ur Random Potassium Cancelled, Fraction Sodium Excret Cancelled 11/14/16 1916: Anion Gap 9, Estimated GFR > 60, BUN/Creatinine Ratio 28.3 H, Glucose 93, Calcium 8.3 L, Total Bilirubin 0.5, AST 40 H, ALT 39, Alkaline Phosphatase 66, Total Protein 6.1 L, Albumin 3.2 L, Globulin 2.9, Albumin/Globulin Ratio 1.1, CBC w Diff NO MAN DIFF REQ, RBC 4.05 L, MCV 76.9 L, MCH 24.7 L, RDW 21.7 H, MPV 7.3 L, Gran % 94.1 H, Lymphocytes % 2.7 L, Monocytes % 1.1 L, Eosinophils % 2.1, Basophils % 0 L, Absolute Granulocytes 5.5, Absolute Lymphocytes 0.2 L, Absolute Monocytes 0.1 L, Absolute Eosinophils 0.1, Absolute Basophils 0, PUBS MCHC 32.2 L, ESR Westergren 9 11/14/16 1745: Urine Color YEL, Urine Clarity CLEAR, Urine pH 5.5, Ur Specific [place] >= 1.030 , Urine Protein 100 H, Urine Ketones NEG, Urine Nitrite NEG, Urine Bilirubin NEG, Urine Urobilinogen 0.2, Ur Leukocyte Esterase NEG, Ur Microscopic SEDIMENT EXAMINED, Urine RBC 1-3, Urine WBC 1-3 H, Ur Epithelial Cells FEW, Urine Bacteria MANY H, Hyaline Casts 1-3 H, Granular Casts 1-3 H, Urine Hemoglobin NEG, Urine Glucose NEG 11/14/16 174: Ur Random Creatinine 133.4, U Random Total Protein 55 H, Ur Random Sodium 85, Ur Random Potassium 75.8, Protein/Creatinin Ratio 0.4 H, Fraction Sodium Excret 0.3 Microbiology 11/14 2046 NASOPHARYN: Influenza Virus A & B Rapid Smear - COMP 11/14 1744 URINE ROUT: Urine Culture - RES Assessment/Plan Assessment: Ms. Andrews is a pleasant 80 year old female with a PMH of ulcerative colitis on mesalamine and mild cognitive impairment on donepezil has been admitted on general medicine floor with complaint of fever, generalized body aches and pains and arthralgias. She offers no complaints. Vitals this morning are normal. MAXIMUM TEMPERATURE since admission is 100.7. WBC count 4.0 with 88% granulocytes and 17 bands, microcytic anemia with H&H 10.8/33.5 and MCV 77.5. Sodium 136. Normal thyroid and cortisol levels. UA with 1-3 urine WBCs with positive hyaline and granular casts. Normal chest x-ray. Head CT with global parenchymal volume loss and chronic small vessel ischemic changes. Lumbar spine CT showed acute on chronic fracture involving L2. Blood culture November 13 preliminary report is negative to date Urine culture negative to date Rapid flu for influenza A and B negative PLAN * Monitor vitals closely and repeat blood cultures if spikes fever * Off antibiotics for now * Follow-up blood and urine cultures * Continue home medications * PT evaluation and treatment * Subcutaneous Lovenox for DVT prophylaxis * Full code Problem List: 1. Fever Pain Ratin Pain Location: none Pain Goal: Remain pain free Pain Plan: tylenol Tomorrow's Labs & Rationales: cbc DVT/Prophylaxis: pharmacological
[2016-11-15 15:22] VITALS: BP 120/70
--- NOTE | 2016-11-15 15:50 | NUR ---
YUE (KAIT) WAS CALLED AND ARRIVED TO FLOOR. REDIRECTED PATIENT TO NEW ROOM 203. NURSE RECORDIST CHIEF ALPHONSE IN TO SPEAK WITH KAIT. 1:1 SITTER MAINTAINED.
--- NOTE | 2016-11-15 18:22 | Cons- Infect Disease ---
General Information and HPI Consulting Request Date of Consult: 11/15/16 Requested By: ASH MAHMOOD MD Reason for Consult: Fever without an obvious source Source of Information: patient, old records, friend Exam Limitations: dementia History of Present Illness: This is a 80-year-old woman with a history of mild dementia, ulcerative colitis and anemia, seen in the emergency room on the day prior to admission with the acute onset of fevers and chills, left-sided headache and earache and arthralgias, found to be febrile to 102, with a white blood cell count of 8000, negative urinalysis and negative chest x-ray, discharged with a diagnosis of viral syndrome, admitted on November 14 after returning to the emergency room with recurrent fevers, headache, earache and arthralgias. On admission she was febrile to 100.7. Laboratory data revealed a white blood cell count of 6000, ESR 9, BUN/creatinine 17 and 0.6, sodium 128, AST 40. Urinalysis 1-3 RBC/1-[address] of the abdomen and pelvis was negative. CT of the lumbar spine revealed an acute on chronic fracture involving the L2 vertebra. CT of the head was negative for any acute process. She was followed off antibiotics. She has remained afebrile overnight. She was reportedly more confused today, threatening to leave the hospital. Presently she offers no complaints. Allergies/Medications Allergies: Coded Allergies: meperidine (From DEMEROL) (UNKNOWN 09/05/16) Home Med List: Cyanocobalamin (Vitamin B-12) (Cyanocobalamin Injection) 1,000 MCG/ML VIAL 1 ML IM Q 2 WEEKS SUPPLEMENT (Reported) Donepezil HCl (Aricept) 5 MG TABLET 1 TAB PO DAILY MEMORY (Reported) Ferrous Sulfate (Slow Fe) 142 MG (45 MG IRON) TABLET.ER 1 TAB PO DAILY SUPPLEMENT (Reported) Mesalamine (Lialda) 1.2 GRAM TABLET.DR 4 TAB PO DAILY UNKNOWN (Reported) [place]-3 Fatty Acids/Fish Oil (Fish Oil 1,000 MG Capsule) 340 MG-1,000 MG CAPSULE 1 CAP PO DAILY SUPPLEMENT (Reported) Past History Travel History Traveled to [place] past 21 day No Medical History Neurological: dementia EENT: NONE Cardiovascular: hyperlipidemia Respiratory: NONE Gastrointestinal: colitis, diverticulitis Hepatic: NONE Renal: NONE Musculoskeletal: disk herniation Psychiatric: NONE Endocrine: NONE Blood Disorders: anemia Cancer(s): NONE 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 Home Services at Home: None Smoking Status: Never Smoked ETOH Use: occasional use Illicit Drug Use: denies illicit drug use Review of Systems Review of Systems All Other Systems: Reviewed and Negative Exam & Diagnostic Data Last 24 Hrs of Vital Signs/I&O Vital Signs Date Time Temp Pulse Resp B/P B/P Pulse O2 O2 Flow FiO2 Mean Ox Delivery Rate 11/15 1522 98.9 84 20 120/70 94 Room Air 11/15 0602 99.8 83 20 100/58 98 Room Air 11/14 2330 Room Air 11/14 2322 99.1 85 20 100/58 95 Room Air 11/14 2228 98.8 88 18 96/56 94 Room Air 11/14 2051 100.6 11/14 2009 100.7 95 18 110/57 96 Room Air Intake & Output 11/15 1600 11/15 0800 11/15 0000 Intake Total 7872 885 4136 Output Total Balance 2464 434 2252 Intake, IV 357 971 8451 Intake, Oral 480 100 300 Patient 111 lb Weight Weight Reported by Patient Measurement Method Physical Exam Other Physical Findings: She is awake and alert in no acute distress. MAXIMUM TEMPERATURE 100.7. Skin reveals no rash. HEENT exam is negative. Neck is supple with no adenopathy. Lungs bibasilar crackles, left greater than right. Heart regular rhythm with a 1/6 systolic ejection murmur. Abdomen is soft, nontender with positive bowel sounds. Back no CVA tenderness. Extremities no cyanosis, clubbing or edema. Neuro is without focality. Last 24 Hours of Lab Results: Laboratory Tests 11/15 11/15 0700 0600 Chemistry Sodium (137 - 145 mmol/L) 136 L Potassium (3.5 - 5.1 mmol/L) 3.9 Chloride (98 - 107 mmol/L) 106 Carbon Dioxide (22 - 30 mmol/L) 22 Anion Gap (5 - 16) 9 BUN (7 - 17 mg/dL) 16 Creatinine (0.5 - 1.0 mg/dL) 0.6 Estimated GFR (>60 ml/min) > 60 BUN/Creatinine Ratio (7 - 25 %) 26.7 H TSH (0.270 - 4.200 uIU/mL) 3.080 Cortisol AM Sample (4.46 - 22.7 ug/dL) 22.6 Hematology CBC w Diff MAN DIFF ORDERED WBC (4.8 - 10.8 /CUMM) 4.0 L RBC (4.20 - 5.40 /CUMM) 4.33 Hgb (12.0 - 16.0 G/DL) 10.8 L Hct (37 - 47 %) 33.5 L MCV (81.0 - 99.0 FL) 77.5 L MCH (27.0 - 31.0 PG) 24.9 L RDW (11.5 - 14.5 %) 21.9 H Plt Count (130 - 400 /CUMM) 163 MPV (7.4 - 10.4 FL) 8.2 Gran % (42.2 - 75.2 %) 88.2 H Lymphocytes % (20.5 - 51.1 %) 5.6 L Monocytes % (1.7 - 9.3 %) 4.2 Eosinophils % (0 - 5 %) 2.0 Basophils % (0.0 - 2.0 %) 0 L Absolute Granulocytes (1.4 - 6.5 /CUMM) 3.5 Segmented Neutrophils (42.2 - 75.2 %) 71 Band Neutrophils (0.0 - 5.0 %) 17 H Absolute Lymphocytes (1.2 - 3.4 /CUMM) 0.2 L Lymphocytes (20.5 - 51.1 %) 6 L Monocytes (1.7 - 9.3 %) 4 Absolute Monocytes (0.10 - 0.60 /CUMM) 0.2 Eosinophils (0 - 5.0 %) 2 Absolute Eosinophils (0.0 - 0.7 /CUMM) 0.1 Absolute Basophils (0.0 - 0.2 /CUMM) 0 Platelet Estimate (ADEQUATE) ADEQUATE Hypochromic-Microcytic 1+ Microcytic Cells 1+ PUBS MCHC (33.0 - 37.0 G/DL) 32.1 L Urines Ur Random Creatinine Cancelled U Random Total Protein Cancelled Ur Random Sodium Cancelled Ur Random Potassium Cancelled Fraction Sodium Excret Cancelled 11/14 191 Chemistry Sodium (137 - 145 mmol/L) 128 L Potassium (3.5 - 5.1 mmol/L) 3.8 Chloride (98 - 107 mmol/L) 97 L Carbon Dioxide (22 - 30 mmol/L) 21 L Anion Gap (5 - 16) 9 BUN (7 - 17 mg/dL) 17 Creatinine (0.5 - 1.0 mg/dL) 0.6 Estimated GFR (>60 ml/min) > 60 BUN/Creatinine Ratio (7 - 25 %) 28.3 H Glucose (65 - 99 mg/dL) 93 Calcium (8.4 - 10.2 mg/dL) 8.3 L Total Bilirubin (0.2 - 1.3 mg/dL) 0.5 AST (14 - 36 U/L) 40 H ALT (9 - 52 U/L) 39 Alkaline Phosphatase (<127 U/L) 66 Total Protein (6.3 - 8.2 g/dL) 6.1 L Albumin (3.5 - 5.0 g/dL) 3.2 L Globulin (1.9 - 4.2 gm/dL) 2.9 Albumin/Globulin Ratio (1.1 - 2.2 %) 1.1 Hematology CBC w Diff NO MAN DIFF REQ WBC (4.8 - 10.8 /CUMM) 5.8 RBC (4.20 - 5.40 /CUMM) 4.05 L Hgb (12.0 - 16.0 G/DL) 10.0 L Hct (37 - 47 %) 31.1 L MCV (81.0 - 99.0 FL) 76.9 L MCH (27.0 - 31.0 PG) 24.7 L RDW (11.5 - 14.5 %) 21.7 H Plt Count (130 - 400 /CUMM) 175 MPV (7.4 - 10.4 FL) 7.3 L Gran % (42.2 - 75.2 %) 94.1 H Lymphocytes % (20.5 - 51.1 %) 2.7 L Monocytes % (1.7 - 9.3 %) 1.1 L Eosinophils % (0 - 5 %) 2.1 Basophils % (0.0 - 2.0 %) 0 L Absolute Granulocytes (1.4 - 6.5 /CUMM) 5.5 Absolute Lymphocytes (1.2 - 3.4 /CUMM) 0.2 L Absolute Monocytes (0.10 - 0.60 /CUMM) 0.1 L Absolute Eosinophils (0.0 - 0.7 /CUMM) 0.1 Absolute Basophils (0.0 - 0.2 /CUMM) 0 PUBS MCHC (33.0 - 37.0 G/DL) 32.2 L ESR Westergren (0 - 20 MM) 9 Last 24 Hours of Clemente Results: Blood cultures 2 November 13 negative Urine culture November 13 negative Urine culture November 14 negative Rapid flu swabs November 13 and November 14 negative Diagnostic Data Recent Imaging Findings: CT of the abdomen and pelvis negative. CT of the lumbar spine revealed an acute on chronic fracture involving the L2 vertebra. CT of the head was negative for any acute process. Assessment/Plan Assessment/Plan Impression: This is a 80-year-old woman with a history of mild dementia and ulcerative colitis, admitted on November 14 with a 2 day history of fevers and chills, headache, earache and arthralgias, with a normal white blood cell count, cultures negative and multiple imaging studies negative for any acute process. Of interest her white blood cell count is decreasing, though with increased bands, raising concern for a tick borne infection, such as Anaplasma, though she has had no significant outdoor exposure this year. A viral process is also possible. An autoimmune process could also be considered, though the acute onset is more suggestive of an infectious process. As she has been afebrile for the past 24 hours and her symptoms appear to have resolved she can continue to be followed off antibiotics. Suggestion: 1. Continue to monitor temperatures and white blood cell count off antibiotics Consult Acknowledgment - Thank you for your consult request.
--- NOTE | 2016-11-15 20:07 | NUR ---
ALERT AND ORIENTED X 3. VITAL SIGNS STABLE. DENIES CHEST PAIN. + PULSES ON 2L OXYGEN VIA NASAL CANNULA. ASSIST X 1. SKIN C/D/I MEDICATION GIVEN FOR DICOMFORT. WILL CONTINUE TO MONITOR
--- NOTE | 2016-11-15 20:10 | NUR ---
ALERT AND ORIENTED X 3. CONFUSION AT TIMES. VITAL SIGNS STABLE. DENIES CHEST PAIN. + PULSES ON ROOM AIR. STEADY GAIT. NO DISCOMFORT NOTED. SITTER AT BEDSIDE. PATIENT AMBULATING. WILL CONTINUE TO MONITOR
[2016-11-15 23:00] VITALS: BP 125/80
[2016-11-16 04:17] VITALS: BP 108/72
--- NOTE | 2016-11-16 06:00 | NUR ---
AT 0300 PT NOTED TO BE FLUSHED AND SWEATING. TEMP 101.4F. OTHER VITALS STABLE. PER DR NICOLE BLOOD CULTURES DRAWN AND SENT. PRN TYLENOL GIVEN. PT COOPERATIVE. REPORTING GENERAL ACHINESS AND WEAKNESS AND FATIGUE. TEMP AT 0400 99.5F. AT 0600 PT NOTED TO BE DRENCHED IN SWEAT. HYGENIC CARE PROVIDED. TEMP 97.5F. PT STATES SHE FEELS MUCH BETTER THIS MORNING.
[2016-11-16 06:58] VITALS: BP 120/67
[2016-11-16 07:48] LABS: ABSOLUTE BASOPHIL COUNT 0 /CUMM (0.0-0.2); ABSOLUTE EOSINOPHIL COUNT 0.1 /CUMM (0.0-0.7); EOSINOPHIL % 0.9 % (0-5); MEAN CORPUSCULAR HGB 24.9 PG (27.0-31.0)
[2016-11-16 08:25] LABS: ABSOLUTE GRANULOCYTE CT 4.8 /CUMM (1.4-6.5); ABSOLUTE LYMPH COUNT 0.7 /CUMM (1.2-3.4); ABSOLUTE MONOCYTE COUNT 0.3 /CUMM (0.10-0.60); BASOPHIL % 0 % (0.0-2.0); GRANULOCYTE % 81.2 % (42.2-75.2); HEMATOCRIT 31.9 % (37-47); MEAN CORPUSCULAR HGB CONC 32.3 G/DL (33.0-37.0); MEAN CORPUSCULAR VOLUME 77.1 FL (81.0-99.0); MEAN PLATELET VOLUME 8.7 FL (7.4-10.4); PLATELET COUNT 144 /CUMM (130-400); RBC DISTRIBUTION WIDTH 22.9 % (11.5-14.5); RED BLOOD CELL CT 4.15 /CUMM (4.20-5.40)
--- NOTE | 2016-11-16 09:39 | PN- Att Addend ---
Attending Addendum Attending Brief Note Patient had an episode of confusion last night with agitation. She had a fever spike last night with chills. General Appearance: Alert, No Acute Distress Skin: Grossly normal HEENT: PEERLA Neck: Supple, No JVD Cardiovascular: Regular Rate, Normal S1, Normal S2, No Murmurs Lungs: Clear to Auscultation, Normal Air Movement Abdomen: Normal Bowel Sounds, Soft, No Tenderness Neurological: Normal Speech, Strength at 5/5 X4 Ext, Cranial Nerves 3-12 NL, Reflexes 2+ Extremities: No Clubbing, No Cyanosis, No Edema Vascular: Normal Pulses Assessment Fever of unknown origin. Negative blood cultures 1 and a urine culture. Repeat blood cultures are pending. Patient does complain of thoracic spine pain that is chronic and CAT scan left mastoid was negative for infection. Must consider tickborne illness although she has not had considerable exposure. Plan Order Tickborne panel per ID Encourage by mouth fluids Follow repeat blood cultures PT evaluation Continue other home medications DVT prophylaxis Current Medications Sig/Isael Start time Last Medication Dose Route Stop Time Status Admin Acetaminophen 650 MG .STK-MED ONE 11/15 2304 DC PO 11/15 2305 Acetaminophen 650 MG Q6P PRN 11/14 2199 AC 11/16 PO 0309 Acetaminophen 1,000 MG Q6P PRN 11/14 2199 DC IV Cyanocobalamin 1,000 MCG Q 2 WEEKS 11/28 1000 AC IM Donepezil HCl 5 MG DAILY 11/15 1000 AC 11/16 PO 0925 Enoxaparin Sodium 40 MG 1500 11/15 1502 AC 11/15 SC 1713 Ferrous Sulfate 325 MG DAILY 11/15 1000 AC 11/16 PO 0926 Fish Oil 1,050 MG DAILY 11/15 1000 AC 11/16 PO 0926 Haloperidol 1 MG ONCE ONE 11/15 1530 DC IM 11/15 1531 Mesalamine 2,400 MG DAILY 11/15 1000 AC 11/16 PO 0925 Oxycodone/ 1 TAB Q6P PRN 11/14 2199 DC Acetaminophen PO Sodium Chloride 1,000 ML .Q10H 11/14 220 DC 11/15 IV 11/15 1759 0922 Laboratory Tests 11/16 0615 Chemistry Sodium (137 - 145 mmol/L) 136 L Potassium (3.5 - 5.1 mmol/L) 3.4 L Chloride (98 - 107 mmol/L) 104 Carbon Dioxide (22 - 30 mmol/L) 23 Anion Gap (5 - 16) 9 BUN (7 - 17 mg/dL) 10 Creatinine (0.5 - 1.0 mg/dL) 0.6 Estimated GFR (>60 ml/min) > 60 BUN/Creatinine Ratio (7 - 25 %) 16.7 Hematology CBC w Diff NO MAN DIFF REQ WBC (4.8 - 10.8 /CUMM) 5.9 RBC (4.20 - 5.40 /CUMM) 4.15 L Hgb (12.0 - 16.0 G/DL) 10.3 L Hct (37 - 47 %) 31.9 L MCV (81.0 - 99.0 FL) 77.1 L MCH (27.0 - 31.0 PG) 24.9 L RDW (11.5 - 14.5 %) 22.9 H Plt Count (130 - 400 /CUMM) 144 MPV (7.4 - 10.4 FL) 8.7 Gran % (42.2 - 75.2 %) 81.2 H Lymphocytes % (20.5 - 51.1 %) 12.5 L Monocytes % (1.7 - 9.3 %) 5.4 Eosinophils % (0 - 5 %) 0.9 Basophils % (0.0 - 2.0 %) 0 L Absolute Granulocytes (1.4 - 6.5 /CUMM) 4.8 Absolute Lymphocytes (1.2 - 3.4 /CUMM) 0.7 L Absolute Monocytes (0.10 - 0.60 /CUMM) 0.3 Absolute Eosinophils (0.0 - 0.7 /CUMM) 0.1 Absolute Basophils (0.0 - 0.2 /CUMM) 0 PUBS MCHC (33.0 - 37.0 G/DL) 32.3 L Vital Signs Date Time Temp Pulse Resp B/P B/P Pulse O2 O2 Flow FiO2 Mean Ox Delivery Rate 11/16 0658 97.8 79 20 120/67 100 Room Air 05/ 0417 99.5 91 20 108/72 94 Room Air 05/ 0408 99.5 05/ 0309 101.4 05/ 0300 101.4 05/ 2300 100.5 83 18 125/80 97 Room Air 05/02 1522 98.9 84 20 120/70 94 Room Air
[2016-11-16] MEDS ORDERED: FOLIC ACID1 M1 PO (09:57)
[2016-11-16] MEDS ORDERED: VITAMIN D2000 UNIT PO (09:57)
[2016-11-16 12:58] LABS: WHITE BLOOD CELL COUNT 5.9 /CUMM (4.8-10.8)
--- NOTE | 2016-11-16 12:58 | PN- Infect Dx ---
Subjective Subjective: MAXIMUM TEMPERATURE 101.4. She offers no complaints at this time, but does report chills and sweats overnight. She does not report any left ear pain, but this has been a chronic problem over the past year. Objective Last 24 Hrs of Vital Signs/I&O Vital Signs Date Time Temp Pulse Resp B/P B/P Pulse O2 O2 Flow FiO2 Mean Ox Delivery Rate 11/16 0658 97.8 79 20 120/67 100 Room Air 11/16 0417 99.5 91 20 108/72 94 Room Air 11/16 0408 99.5 11/16 0309 101.4 11/16 0300 101.4 11/15 2300 100.5 83 18 125/80 97 Room Air 11/15 1522 98.9 84 20 120/70 94 Room Air Intake & Output 11/16 1600 11/16 0800 11/16 0000 Intake Total 400 500 Output Total Balance 400 500 Intake, Oral 400 500 Physical Exam Other Physical Findings: She appears comfortable in no acute distress HEENT no temporal artery tenderness; left tympanic membrane without obvious inflammation Neck resistant to flexion and extension Lungs crackles at the left base Heart regular rhythm with a 1/6 systolic ejection murmur Abdomen soft, nontender with positive bowel sounds Extremities trace edema both lower extremities Results Last 24 Hours of Lab Results: Laboratory Tests 11/16 11/16 1125 0615 Chemistry Sodium (137 - 145 mmol/L) 136 L Potassium (3.5 - 5.1 mmol/L) 3.4 L Chloride (98 - 107 mmol/L) 104 Carbon Dioxide (22 - 30 mmol/L) 23 Anion Gap (5 - 16) 9 BUN (7 - 17 mg/dL) 10 Creatinine (0.5 - 1.0 mg/dL) 0.6 Estimated GFR (>60 ml/min) > 60 BUN/Creatinine Ratio (7 - 25 %) 16.7 Hematology CBC w Diff NO MAN DIFF REQ WBC (4.8 - 10.8 /CUMM) 5.9 RBC (4.20 - 5.40 /CUMM) 4.15 L Hgb (12.0 - 16.0 G/DL) 10.3 L Hct (37 - 47 %) 31.9 L MCV (81.0 - 99.0 FL) 77.1 L MCH (27.0 - 31.0 PG) 24.9 L RDW (11.5 - 14.5 %) 22.9 H Plt Count (130 - 400 /CUMM) 144 MPV (7.4 - 10.4 FL) 8.7 Gran % (42.2 - 75.2 %) 81.2 H Lymphocytes % (20.5 - 51.1 %) 12.5 L Monocytes % (1.7 - 9.3 %) 5.4 Eosinophils % (0 - 5 %) 0.9 Basophils % (0.0 - 2.0 %) 0 L Absolute Granulocytes (1.4 - 6.5 /CUMM) 4.8 Absolute Lymphocytes (1.2 - 3.4 /CUMM) 0.7 L Absolute Monocytes (0.10 - 0.60 /CUMM) 0.3 Absolute Eosinophils (0.0 - 0.7 /CUMM) 0.1 Absolute Basophils (0.0 - 0.2 /CUMM) 0 PUBS MCHC (33.0 - 37.0 G/DL) 32.3 L Serology A.phagocytophil DNA PCR Pending Last 24 Hours of Clemente Results: Blood cultures 2 November 16 negative so far Assessment/Plan Impression: Recurrent fevers with no obvious source with cultures and imaging studies negative. Her white blood cell count has increased slightly, making a tickborne infection such as Anaplasma less likely, though her platelets have decreased. A viral illness is also possible, though she has no focal symptoms. The normal white blood cell count also raises concern for a noninfectious process, such as temporal arteritis, given her headaches, or another autoimmune process, though her ESR is only 9. Other noninfectious processes, such as DVT of the lower extremities, are also possible. Suggestion: 1. Dopplers of both lower extremities 2. Would review peripheral smear for morulae and send PCR for Anaplasma 3. ENT evaluation if her left ear pain persists 4. Continue to follow off antibiotics pending above
--- NOTE | 2016-11-16 13:49 | PN- Housestaff ---
Subjective Follow-up For: Fever of unknown origin Worsening dementia Subjective: Overnight patient spiked temperature maximum of 101.4. She was sweating a lot and having chills. This morning she is alert and awake but confused. Her conservator was admitted bedside. She is complaining of headache, neck pain and lower back pain. Review of Systems Constitutional: Reports: see HPI. Objective Last 24 Hrs of Vital Signs/I&O Vital Signs Date Time Temp Pulse Resp B/P B/P Pulse O2 O2 Flow FiO2 Mean Ox Delivery Rate 11/16 0558 97.8 79 20 120/67 100 Room Air 11/16 0417 99.5 91 20 108/72 94 Room Air 11/16 0408 99.5 11/16 0309 101.4 11/16 0300 101.4 11/15 2300 100.5 83 18 125/80 97 Room Air 11/15 1522 98.9 84 20 120/70 94 Room Air Intake & Output 11/16 1600 11/16 0800 11/16 0000 Intake Total 400 500 Output Total Balance 400 500 Intake, Oral 400 500 Physical Exam General Appearance: Alert, No Acute Distress Neck: Supple Cardiovascular: Regular Rate Lungs: Clear to Auscultation Abdomen: Normal Bowel Sounds, Soft, No Tenderness Neurological: Normal Speech, Strength at 5/5 X4 Ext, Sensation Intact, Cranial Nerves 3-12 NL Extremities: No Edema Current Medications: Current Medications Sig/Isael Start time Last Medication Dose Route Stop Time Status Admin Acetaminophen 650 MG .STK-MED ONE 11/16 0308 DC PO 11/16 0309 Acetaminophen 650 MG .STK-MED ONE 11/15 2304 DC PO 11/15 2305 Acetaminophen 650 MG Q6P PRN 11/14 2200 AC 11/16 PO 1005 Acetaminophen 1,000 MG Q6P PRN 11/14 2200 DC IV Cholecalciferol 2,000 IU DAILY 11/16 1000 AC PO Cyanocobalamin 1,000 MCG Q 2 WEEKS 11/28 1000 AC IM Donepezil HCl 5 MG DAILY 11/15 1000 AC 11/15 PO 0924 Enoxaparin Sodium 40 MG 1500 11/15 1502 AC 11/15 SC 1713 Ferrous Sulfate 325 MG DAILY 11/15 1000 AC 11/15 PO 0924 Fish Oil 1,050 MG DAILY 11/15 1000 AC 11/15 PO 0924 Folic Acid 1 MG DAILY 11/16 1000 AC PO Haloperidol 1 MG ONCE ONE 11/15 1530 DC IM 11/15 1531 Mesalamine 2,400 MG DAILY 11/15 1000 AC 11/16 PO 0925 Oxycodone/ 1 TAB Q6P PRN 11/14 2200 DC Acetaminophen PO Potassium Chloride 40 MEQ ONCE ONE 11/16 1400 DC PO 11/16 1401 Last 24 Hrs of Lab/Clemente Results Last 24 Hrs of Labs/Mics: Laboratory Tests 11/16/16 1125: A.phagocytophil DNA PCR Pending 11/16/16 0615: Anion Gap 9, Estimated GFR > 60, BUN/Creatinine Ratio 16.7, CBC w Diff NO MAN DIFF REQ, RBC 4.15 L, MCV 77.1 L, MCH 24.9 L, RDW 22.9 H, MPV 8.7, Gran % 81.2 H, Lymphocytes % 12.5 L, Monocytes % 5.4, Eosinophils % 0.9, Basophils % 0 L, Absolute Granulocytes 4.8, Absolute Lymphocytes 0.7 L, Absolute Monocytes 0.3, Absolute Eosinophils 0.1, Absolute Basophils 0, PUBS MCHC 32.3 L Microbiology 11/16 329 BLOOD: Blood Culture - RECD 11/16 329 BLOOD: Blood Culture - RECD Assessment/Plan Assessment: Ms. Andrews is a pleasant 80 year old female with a PMH of ulcerative colitis on mesalamine and mild cognitive impairment on donepezil has been admitted on general medicine floor for fever of unknown origin. Vitals this morning are normal. MAXIMUM TEMPERATURE since admission is 101.4 Gran% 81.2, sodium 136, k 3.4 Repeat Blood culture x 2 pending Urine culture negative to date Rapid flu for influenza A and B negative PLAN * Monitor vitals closely * ? Tick borne illness per ID. * follow up peripheral smear for morulae and PCR for Anaplasma * Off antibiotics for now * Follow-up blood and urine cultures * Continue home medications * PT evaluation and treatment * Subcutaneous Lovenox for DVT prophylaxis * Full code Problem List: 1. Fever Pain Ratin Pain Location: head Pain Goal: Remain pain free Pain Plan: tylenol Tomorrow's Labs & Rationales: cbc DVT/Prophylaxis: pharmacological
[2016-11-16 14:31] VITALS: BP 108/62
--- NOTE | 2016-11-16 15:50 | ULTRASOUND REPORT ---
EXAMINATION: US TRIPLEX OF LOWER EXTREMITIES, BILATERAL CLINICAL INFORMATION: Bilateral lower shotty pain. COMPARISON: None. TECHNIQUE: Color-flow triplex imaging with spectral analysis and compression Doppler were performed on the lower extremities. FINDINGS: Respiratory variation, normal compression and augmented flow are noted throughout the lower extremities. The visualized common femoral vein, proximal greater saphenous vein, femoral vein, profunda femoral vein, popliteal vein and visualized mid calf venous segments show no evidence of deep venous thrombosis. There is no Mireles's cyst. IMPRESSION: Normal triplex scan without evidence of deep venous thrombosis involving the lower extremities.
--- NOTE | 2016-11-16 16:09 | NUR ---
LATE ENTRY: PT REFUSED MULTIPLE MEDICATIONS TODAY DESPITE SEVERAL ATTEMPTS TO ADMINISTER THEM. ALTERTNATE METHODS OF COAXING ATTEMPTED BUT PT ADAMANT ABOUT NOT TAKING SUCH PILLS. SEE DOCUMENTATION IN EMAR. DR. VIDAL NOTIFIED OF ABOVE. WILL CONT TO MONITOR.
[2016-11-16 21:55] VITALS: BP 130/70
[2016-11-17 06:29] VITALS: BP 130/64
[2016-11-17 08:25] LABS: ABSOLUTE BASOPHIL COUNT 0 /CUMM (0.0-0.2); ABSOLUTE EOSINOPHIL COUNT 0.2 /CUMM (0.0-0.7); ABSOLUTE GRANULOCYTE CT 3.9 /CUMM (1.4-6.5); ABSOLUTE LYMPH COUNT 0.8 /CUMM (1.2-3.4); ABSOLUTE MONOCYTE COUNT 0.4 /CUMM (0.10-0.60); BASOPHIL % 0.3 % (0.0-2.0); EOSINOPHIL % 4.1 % (0-5); GRANULOCYTE % 72.3 % (42.2-75.2); HEMATOCRIT 28.4 % (37-47); MEAN CORPUSCULAR HGB 24.4 PG (27.0-31.0); MEAN CORPUSCULAR HGB CONC 32.1 G/DL (33.0-37.0); MEAN CORPUSCULAR VOLUME 76.1 FL (81.0-99.0); MEAN PLATELET VOLUME 8.5 FL (7.4-10.4); PLATELET COUNT 144 /CUMM (130-400); RBC DISTRIBUTION WIDTH 21.7 % (11.5-14.5); RED BLOOD CELL CT 3.73 /CUMM (4.20-5.40); WHITE BLOOD CELL COUNT 5.4 /CUMM (4.8-10.8)
--- NOTE | 2016-11-17 09:22 | PN- Att Addend ---
Attending Addendum Attending Brief Note Patient has intermittent confusion however she feels well today and has remained afebrile for last 24 hours General Appearance: Alert, No Acute Distress Skin: Grossly normal HEENT: PEERLA Neck: Supple, No JVD Cardiovascular: Regular Rate, Normal S1, Normal S2, No Murmurs Lungs: Clear to Auscultation, Normal Air Movement Abdomen: Normal Bowel Sounds, Soft, No Tenderness Neurological: Normal Speech, Strength at 5/5 X4 Ext, Cranial Nerves 3-12 NL, Reflexes 2+ Extremities: No Clubbing, No Cyanosis, No Edema Vascular: Normal Pulses Assessment Fever of unknown origin. Negative blood cultures 1 and a urine culture. Repeat blood cultures are pending. Provisional diagnosis is a tickborne illness. Anaplasma is pending. Patient does have acute intermittent left ear pain. CAT scan is negative. We will get inpatient ENT evaluation prior to discharge. Plan ENT evaluation Encourage by mouth fluids Follow repeat blood cultures Continue other home medications DVT prophylaxis Current Medications Sig/Isael Start time Last Medication Dose Route Stop Time Status Admin Acetaminophen 650 MG .STK-MED ONE 11/16 1005 DC PO 11/16 1006 Acetaminophen 650 MG Q6P PRN 11/14 2200 AC 11/17 PO 0545 Cholecalciferol 2,000 IU DAILY 11/16 1000 AC PO Cyanocobalamin 1,000 MCG Q 2 WEEKS 11/28 1000 AC IM Donepezil HCl 5 MG DAILY 11/15 1000 AC 11/15 PO 0924 Enoxaparin Sodium 40 MG 1500 11/15 1502 AC 11/15 SC 1713 Ferrous Sulfate 325 MG DAILY 11/15 1000 AC 11/15 PO 0924 Fish Oil 1,050 MG DAILY 11/15 1000 AC 11/15 PO 0924 Folic Acid 1 MG DAILY 11/16 1000 AC PO Mesalamine 2,400 MG DAILY 11/15 1000 AC 11/16 PO 0925 Potassium Chloride 40 MEQ ONCE ONE 11/16 1400 DC 11/16 PO 11/16 1401 1426 Laboratory Tests 11/17 11/16 0648 1125 Chemistry Sodium (137 - 145 mmol/L) 135 L Potassium (3.5 - 5.1 mmol/L) 3.7 Chloride (98 - 107 mmol/L) 105 Carbon Dioxide (22 - 30 mmol/L) 23 Anion Gap (5 - 16) 7 BUN (7 - 17 mg/dL) 11 Creatinine (0.5 - 1.0 mg/dL) 0.5 Estimated GFR (>60 ml/min) > 60 BUN/Creatinine Ratio (7 - 25 %) 22.0 Hematology CBC w Diff NO MAN DIFF REQ WBC (4.8 - 10.8 /CUMM) 5.4 RBC (4.20 - 5.40 /CUMM) 3.73 L Hgb (12.0 - 16.0 G/DL) 9.1 L Hct (37 - 47 %) 28.4 L MCV (81.0 - 99.0 FL) 76.1 L MCH (27.0 - 31.0 PG) 24.4 L RDW (11.5 - 14.5 %) 21.7 H Plt Count (130 - 400 /CUMM) 144 MPV (7.4 - 10.4 FL) 8.5 Gran % (42.2 - 75.2 %) 72.3 Lymphocytes % (20.5 - 51.1 %) 15.4 L Monocytes % (1.7 - 9.3 %) 7.9 Eosinophils % (0 - 5 %) 4.1 Basophils % (0.0 - 2.0 %) 0.3 Absolute Granulocytes (1.4 - 6.5 /CUMM) 3.9 Absolute Lymphocytes (1.2 - 3.4 /CUMM) 0.8 L Absolute Monocytes (0.10 - 0.60 /CUMM) 0.4 Absolute Eosinophils (0.0 - 0.7 /CUMM) 0.2 Absolute Basophils (0.0 - 0.2 /CUMM) 0 PUBS MCHC (33.0 - 37.0 G/DL) 32.1 L Serology A.phagocytophil DNA PCR Pending Vital Signs Date Time Temp Pulse Resp B/P B/P Pulse O2 O2 Flow FiO2 Mean Ox Delivery Rate 11/17 0629 97.9 92 18 130/64 95 Room Air 11/16 2155 97.8 83 7 130/70 96 11/16 1431 97.3 79 18 108/62 100 Room Air
--- NOTE | 2016-11-17 09:54 | PN- Housestaff ---
Subjective Follow-up For: Fever of unknown origin Worsening dementia Subjective: No overnight events. Patient did not spike fever in last 24 hours. This morning she is still confused and complaining of headache. Review of Systems Constitutional: Reports: see HPI. Objective Last 24 Hrs of Vital Signs/I&O Vital Signs Date Time Temp Pulse Resp B/P B/P Pulse O2 O2 Flow FiO2 Mean Ox Delivery Rate 11/17 0629 97.9 92 18 130/64 95 Room Air 11/16 2155 97.8 83 7 130/70 96 11/16 1431 97.3 79 18 108/62 100 Room Air Intake & Output 11/17 1600 11/17 0800 11/17 0000 Intake Total 600 Output Total Balance 600 Intake, Oral 600 Physical Exam General Appearance: Alert, No Acute Distress Skin: No Rashes Neck: Supple Cardiovascular: Regular Rate, No Murmurs Lungs: Clear to Auscultation Abdomen: Normal Bowel Sounds, Soft, No Tenderness Neurological: Normal Speech, Strength at 5/5 X4 Ext, Sensation Intact, Cranial Nerves 3-12 NL Extremities: No Edema Current Medications: Current Medications Sig/Isael Start time Last Medication Dose Route Stop Time Status Admin Acetaminophen 650 MG .STK-MED ONE 11/16 1005 DC PO 11/16 1006 Acetaminophen 650 MG Q6P PRN 11/14 2200 AC 11/17 PO 0545 Cholecalciferol 2,000 IU DAILY 11/16 1000 AC PO Cyanocobalamin 1,000 MCG Q 2 WEEKS 11/28 1000 AC IM Donepezil HCl 5 MG DAILY 11/15 1000 AC 11/15 PO 0924 Enoxaparin Sodium 40 MG 1500 11/15 1502 AC 11/15 RI 1713 Ferrous Sulfate 325 MG DAILY 11/15 1000 AC 11/15 PO 0924 Fish Oil 1,050 MG DAILY 11/15 1000 AC 11/15 PO 0924 Folic Acid 1 MG DAILY 11/16 1000 AC PO Mesalamine 2,400 MG DAILY 11/15 1000 AC 11/16 PO 0925 Potassium Chloride 40 MEQ ONCE ONE 11/16 1400 DC 11/16 PO 11/16 1401 1426 Last 24 Hrs of Lab/Clemente Results Last 24 Hrs of Labs/Mics: Laboratory Tests 11/17/16 0648: Anion Gap 7, Estimated GFR > 60, BUN/Creatinine Ratio 22.0, CBC w Diff NO MAN DIFF REQ, RBC 3.73 L, MCV 76.1 L, MCH 24.4 L, RDW 21.7 H, MPV 8.5, Gran % 72.3, Lymphocytes % 15.4 L, Monocytes % 7.9, Eosinophils % 4.1, Basophils % 0.3 , Absolute Granulocytes 3.9, Absolute Lymphocytes 0.8 L, Absolute Monocytes 0.4 , Absolute Eosinophils 0.2, Absolute Basophils 0, PUBS MCHC 32.1 L 11/16/16 1125: A.phagocytophil DNA PCR Pending Assessment/Plan Assessment: Ms. Andrews is a pleasant 80 year old female with a PMH of ulcerative colitis on mesalamine and mild cognitive impairment on donepezil has been admitted on general medicine floor for fever of unknown origin. His WBC count has become normal. Cultures including blood and urine cultures have been negative. Negative diagnostic imaging tests. atient is complaining of headache and ear pain intermittently but no obvious source of infection. Initially fever and elevated WBC count could be because of viral illness. Peripheral smear did not show any evidence of parasites. PCR for Anaplasma is pending but seems less likely. PLAN Monitor vitals closely. We will ask ID if there are any further recommendations otherwise plan is to discharge her home today. I made her an appointment for ENT with Dr. Edwards, on Monday at 11 AM in his [place] office for her ear pain. Conservator has been updated and she is okay with the plan. We will continue all his home medications upon discharge. Problem List: 1. Fever Pain Ratin Pain Location: headcahe Pain Goal: Remain pain free Pain Plan: tylenol Tomorrow's Labs & Rationales: none DVT/Prophylaxis: pharmacological
--- NOTE | 2016-11-17 09:58 | Patient Discharge Instructions ---
Discharge Instructions General Discharge Information You were seen/treated for: Fever of unknown origin Worsening dementia Special Instructions: 1. Please follow-up with your primary care provider next week after discharge 2. Please see Dr. Edwards, in his [place] office on 11/22/2016, for your ear pain at 11 AM. Diet Continue normal diet: Yes Activity Full Activity/No Limits: Yes Acute Coronary Syndrome Inclusion Criteria At DC or during hospital stay patient has or had the following: ACS DIAGNOSIS No Discharge Core Measures Meds if any: Prescribed or Continued at Discharge Meds if any: NOT Prescribed or Continued at Discharge Congestive Heart Failure Inclusion Criteria At DC or during hospital stay patient has or had the following: CHF DIAGNOSIS No Discharge Core Measures Meds if any: Prescribed or Continued at Discharge Meds if any: NOT Prescribed or Continued at Discharge Cerebrovascular accident Inclusion Criteria At DC or during hospital stay patient has or had the following: CVA/TIA Diagnosis No Discharge Core Measures Meds if any: Prescribed or Continued at Discharge Meds if any: NOT Prescribed or Continued at Discharge Venous thromboembolism Inclusion Criteria VTE Diagnosis No VTE Type NONE VTE Confirmed by (Test) NONE Discharge Core Measures - Per Current guidelines, there needs to be overlap - treatment for the first 5 days of Warfarin therapy. - If discharged on Warfarin prior to 5 days of - overlap therapy, the patient will need to be - assessed for post discharge needs including - *Post discharge parental anticoagulation - *Warfarin and/or parental anticoagulation education - *Follow up date to check INR post discharge At least 5 days overlap therapy as Inpatient No Meds if any: Prescribed or Continued at Discharge Note: Overlap Therapy is Warfarin and Anticoagulant Meds if any: NOT Prescribed or Continued at Discharge
--- NOTE | 2016-11-17 14:43 | PN- Infect Dx ---
Subjective Subjective: Afebrile without complaints Objective Last 24 Hrs of Vital Signs/I&O Vital Signs Date Time Temp Pulse Resp B/P B/P Pulse O2 O2 Flow FiO2 Mean Ox Delivery Rate 11/17 628 97.9 92 18 130/64 95 Room Air 11/16 2155 97.8 83 7 130/70 96 Intake & Output 11/17 1600 11/17 0800 11/17 0000 Intake Total 840 600 Output Total Balance 840 600 Intake, Oral 840 600 Physical Exam Other Physical Findings: She appears comfortable in no acute distress Exam is without change Results Last 24 Hours of Lab Results: Laboratory Tests 11/18 647 Chemistry Sodium (137 - 145 mmol/L) 135 L Potassium (3.5 - 5.1 mmol/L) 3.7 Chloride (98 - 107 mmol/L) 105 Carbon Dioxide (22 - 30 mmol/L) 23 Anion Gap (5 - 16) 7 BUN (7 - 17 mg/dL) 11 Creatinine (0.5 - 1.0 mg/dL) 0.5 Estimated GFR (>60 ml/min) > 60 BUN/Creatinine Ratio (7 - 25 %) 22.0 Hematology CBC w Diff NO MAN DIFF REQ WBC (4.8 - 10.8 /CUMM) 5.4 RBC (4.20 - 5.40 /CUMM) 3.73 L Hgb (12.0 - 16.0 G/DL) 9.1 L Hct (37 - 47 %) 28.4 L MCV (81.0 - 99.0 FL) 76.1 L MCH (27.0 - 31.0 PG) 24.4 L RDW (11.5 - 14.5 %) 21.7 H Plt Count (130 - 400 /CUMM) 144 MPV (7.4 - 10.4 FL) 8.5 Gran % (42.2 - 75.2 %) 72.3 Lymphocytes % (20.5 - 51.1 %) 15.4 L Monocytes % (1.7 - 9.3 %) 7.9 Eosinophils % (0 - 5 %) 4.1 Basophils % (0.0 - 2.0 %) 0.3 Absolute Granulocytes (1.4 - 6.5 /CUMM) 3.9 Absolute Lymphocytes (1.2 - 3.4 /CUMM) 0.8 L Absolute Monocytes (0.10 - 0.60 /CUMM) 0.4 Absolute Eosinophils (0.0 - 0.7 /CUMM) 0.2 Absolute Basophils (0.0 - 0.2 /CUMM) 0 PUBS MCHC (33.0 - 37.0 G/DL) 32.1 L Last 24 Hours of Clemente Results: Blood cultures November 16 negative Recent Imaging Studies: Dopplers both lower extremities November 16 negative Assessment/Plan Impression: Fevers appear to have resolved, with no obvious explanation, with white blood cell count normal and cultures and imaging studies negative. Anaplasma seems unlikely but a PCR has been sent. Suggestion: 1. Follow-up serum PCR for Anaplasma 2. Continue to follow off antibiotics
--- NOTE | 2016-12-14 14:54 | Discharge Summary ---
Visit Information Visit Dates Admission Date: 11/14/16 Discharge Date: 11/17/16 Hospital Course Course Attending Physician: ESHA UNGER MD Primary Care Physician: ASH MAHMOOD MD Consulting Request: Consulting Specialty: Infectious Disease Consulting Physician: Keo Gutierrez MD Hospital Course: 80-year-old with history of dementia, colitis, hyperlipidemia, disc herniation, anemia presenting with complaints of fever, chills and arthralgia for 2 days. She was previously seen in the ER with a negative workup and sent home when she had subsequent fevers and was seen in our office and sent to ER for reevaluation. 1. Fever of unknown origin CAT scan abdomen and pelvis was negative except for acute on chronic L2 fracture with possible disc compression. Blood culture 1 and urine culture was pending. patient was followed off antibiotics and no clear source of infection was identified. She was followed by infectious disease who recommended workup for tickborne disease including Anaplasma which was not available at the time of discharge. she also underwent CAT scan and lumbar sacral spine for possible source and was negative. Patient did defervescence and depending tick borne illness workup will be followed as outpatient. 2. Hyponatremia Hyponatremia likely secondary to poor by mouth intake has improved with IV fluids. Allergies: Coded Allergies: meperidine (From DEMEROL) (UNKNOWN 09/05/16) Significant Procedures: CAT scan abdomen and pelvis IMPRESSION: No acute findings within the abdomen or pelvis to explain patient symptomatology. However, please note that evaluation of the abdomen and pelvis is limited given lack of intravenous contrast. Pancolonic diverticulosis, without secondary signs of acute diverticulitis. Hypoattenuating lesions within the right kidney, indicative of simple renal cortical cysts. CAT scan lumbar spine IMPRESSION: There is an acute on chronic fracture involving the L2 vertebra. Specifically there is a new transverse lucency that undermines the upper L2 endplate. There is anterior wedging of the L1 and L2 vertebral bodies with approximately 50% vertebral body height loss anteriorly at L1 and 50% vertebral body height loss anteriorly at L2. There is grade 1 anterolisthesis of L4 on L5 related to advanced facet degenerative changes at this level. Grossly no evidence of canal compromise. Varying degrees of neuroforaminal encroachment as described above. Disposition Summary Disposition Principal Diagnosis: fever of unknown origin Additional Diagnosis: hyponatremia dementia Discharge Disposition: home or self care Discharge Instructions General Discharge Information Code Status: Full Code Patient's Diet: regular diet Patient's Activity: as tolerated Follow-Up Instructions/Appts: follow-up at our office within a week of discharge. Anaplasma PCR pending at the time of discharge. Medications at Discharge Discharge Medications: Continue taking these medications: Ferrous Sulfate (Slow Fe) 142 MG (45 MG IRON) TABLET.ER 1 Tablet ORAL DAILY Comments: NOT GIVEN IN HOSPITAL Mesalamine (Lialda) 1.2 GRAM TABLET.DR 4 Tablet ORAL DAILY Qty = 60 Comments: NOT GIVEN IN HOSPITAL Donepezil HCl (Aricept) 5 MG TABLET 1 Tablet ORAL DAILY Comments: Last Taken: 11/21/16 Time:1000 [place]-3 Fatty Acids/Fish Oil (Fish Oil 1,000 MG Capsule) 340 MG-1,000 MG CAPSULE 1 Capsule ORAL DAILY Comments: NOT GIVEN IN HOSPITAL Cyanocobalamin (Vitamin B-12) (Cyanocobalamin Injection) 1,000 MCG/ML VIAL 1 Milliliters INTRAMUSC EVERY 2 WEEKS Comments: NOT GIVEN IN HOSPITAL Cholecalciferol (Vitamin D3) (Vitamin D) 2,000 UNIT CAPSULE 1 Capsule ORAL DAILY Qty = 30 Comments: NOT GIVEN IN HOSPITAL Folic Acid (Folic Acid) 1 MG TABLET 1 Tablet ORAL DAILY Comments: NOT GIVEN IN HOSPITAL Copies To: ELA HODGES,ASH Castillo Attending MD Review Statement Documenting Attending: ESHA UNGER MD
== END 2016-11-17 15:04 | disposition home health service (06) | DRG 392 ==
LOC: ERH 16:19 → 2NB 21:47 → ERHI 21:47 → 2NB 21:47 → ENRESERV 22:16 → 2NB 22:54 → ENPENDDIS 11-17 13:54 → 2NB 11-17 15:04
PROVIDERS: Emergency Medicine; Internal Medicine; Internal Medicine Cardiovascular Disease; ADMIT Internal Medicine
DX: A08.4 Viral intestinal infection, unspecified (principal); E87.1 Hypo-osmolality and hyponatremia; K51.90 Ulcerative colitis, unspecified, without complications; F03.90 Unspecified dementia, unspecified severity, without behavioral disturbance, psychotic disturbance, mood disturbance, and anxiety; M48.56XA Collapsed vertebra, not elsewhere classified, lumbar region, initial encounter for fracture; R50.9 Fever, unspecified; E78.5 Hyperlipidemia, unspecified; M54.9 Dorsalgia, unspecified; D64.9 Anemia, unspecified; R62.7 Adult failure to thrive; F32.9 Major depressive disorder, single episode, unspecified
CPT/HCPCS: 2NSBP; 84133; 84300; 87798; 74176; 81001; 82436; 82570; 87040; 87086; 87804; 87804-59; 93005; 93010; 93970; 97116-GO; 97161-GP; J1630; J1650; J3490

== ENCOUNTER 2016-11-18 20:36 | Observation (INO) | payer OTHER ==
[~2016-11-18] VITALS: Ht 160 cm; Wt 49.9 kg
[~2016-11-18 20:36] MED LIST changes: +FOLIC ACID1 M1 PO; +VITAMIN D2000 UNIT PO
--- NOTE | 2016-11-18 20:38 | NUR ---
PER FAMILY DISCHARGED FROM INPATIENT [facility] YESTERDAY FOR LOW SODIUM AND POTASSIUM AND ? UTI, ARRIVES TODAY WITH NAUSEA. CONT TO CO PAIN TO L NECK AND L SHOULDER,,, THE OTHER DAY
--- NOTE | 2016-11-18 20:56 | ED GI/GU/ABDOMINAL COMPLAINT ---
History of Present Illness General Chief Complaint: Nausea, Vomiting, Diarrhea Stated Complaint: NAUSEA Source: patient Exam Limitations: no limitations Vital Signs & Intake/Output Vital Signs & Intake/Output Vital Signs Date Time Temp Pulse Resp B/P B/P Pulse O2 O2 Flow FiO2 Mean Ox Delivery Rate 11/19 0427 99.3 81 18 98/50 93 Room Air / 0207 99.1 88 16 90/50 93 Room Air / 0146 98.3 82 22 96/54 98 / 2314 88 22 94/56 98 11/18 2150 92/48 11/18 2144 86/44 11/18 2041 98.2 92 22 97 Room Air ED Intake and Output 11/19 0000 11/18 1200 Intake Total 650 Output Total 100 Balance 550 Intake, IV 650 Output, Urine 100 Patient 135 lb Weight Allergies Coded Allergies: meperidine (From DEMEROL) (UNKNOWN 09/05/16) Reconcile Medications Cholecalciferol (Vitamin D3) (Vitamin D) 2,000 UNIT CAPSULE 1 CAP PO DAILY SUPPLEMENT (Reported) Cyanocobalamin (Vitamin B-12) (Cyanocobalamin Injection) 1,000 MCG/ML VIAL 1 ML IM Q 2 WEEKS SUPPLEMENT (Reported) Donepezil HCl (Aricept) 5 MG TABLET 1 TAB PO DAILY MEMORY (Reported) Ferrous Sulfate (Slow Fe) 142 MG (45 MG IRON) TABLET.ER 1 TAB PO DAILY SUPPLEMENT (Reported) Folic Acid 1 MG TABLET 1 TAB PO DAILY SUPPLEMENT (Reported) Mesalamine (Lialda) 1.2 GRAM TABLET.DR 4 TAB PO DAILY UNKNOWN (Reported) [place]-3 Fatty Acids/Fish Oil (Fish Oil 1,000 MG Capsule) 340 MG-1,000 MG CAPSULE 1 CAP PO DAILY SUPPLEMENT (Reported) Triage Note: PER FAMILY DISCHARGED FROM INPATIENT [place] [facility] YESTERDAY FOR LOW SODIUM AND POTASSIUM AND ? UTI, ARRIVES TODAY WITH NAUSEA. Triage Nurses Notes Reviewed? yes ? n Is pt currently ? No Onset: Gradual Duration: hour(s): Timing: recent history Quality/Severity: cramping Location: generalized abdomen Radiation: no radiation Activities at Onset: none Prior Abdominal Problems: similar symptoms Modifying Factors: Worsens With: palpation, vomiting. Associated Symptoms: abdominal pain, nausea/vomiting HPI: 80-year-old woman discharged yesterday for fever, UTI, hyponatremia, presents with vomiting and abdominal pain weakness for the past day. Her family member states that upon arrival to home yesterday, she was doing well. However, this morning she developed weakness vomiting diffuse abdominal pain left shoulder pain. "She is able to eat anything." "She so weak." She has not had any recent fevers, chest pain, shortness of breath, cough. Past History Travel History Traveled to [place] past 21 day No Medical History Any Pertinent Medical History? 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 No Review of Systems Review of Systems Constitutional: Reports: no symptoms. EENTM: Reports: no symptoms. Respiratory: Reports: no symptoms. Cardiovascular: Reports: no symptoms. GI: Reports: no symptoms. Genitourinary: Reports: no symptoms. Musculoskeletal: Reports: no symptoms. Skin: Reports: no symptoms. Neurological/Psychological: Reports: no symptoms. Hematologic/Endocrine: Reports: no symptoms. Immunologic/Allergic: Reports: no symptoms. All Other Systems: Reviewed and Negative Physical Exam Physical Exam General Appearance: well developed/nourished, mild distress, moderate distress Head: atraumatic, normal appearance Eyes: Bilateral: normal appearance. Ears, Nose, Throat, Mouth: hearing grossly normal Neck: normal inspection, supple, full range of motion, normal alignment Respiratory: normal breath sounds, chest non-tender, no respiratory distress, quiet respiration, lungs clear Cardiovascular: regular rate/rhythm Gastrointestinal: normal bowel sounds, soft, DIFFUSE TENDERNESS IN THE LEFT ABDOMEN AND SUPRAPUBIC REGION. nO REBOUND NO GUARDING. nO ORGANOMEGALY. Back: normal inspection Extremities: normal range of motion Neurologic/Psych: no motor/sensory deficits, awake, alert, oriented x 3 Skin: intact, normal color, warm/dry Core Measures ACS in differential dx? No Severe Sepsis Present: No Septic Shock Present: No Progress Differential Diagnosis: COLITIS VERSUS c. DIFFICILE VERSUS DEHYDRATION VERSUS OTHER. Plan of Care: Orders Procedure Date/time Status Clear Liquid Diet 11/19 B Active PT Evaluate & Treat 11/19 599 Active CBC WITHOUT DIFFERENTIAL 11/19 599 Active BASIC ELECTROLYTES PLUS BUN&CR 11/19 599 Active Vital Signs 11/20 211 Active Teach/Educate 11/20 211 Active Pain Treatment and Response 11/20 211 Active Nutritional Intake, Monitor 11/20 211 Active Isolation 11/20 211 Active Intake & Output 11/20 211 Active Patient Care Conference 11/20 211 Active Activity/Ambulation 11/20 211 Active Pathway - chart 11/19 26 Active House Staff 11/19 26 Active Patient Data 11/19 26 Active Code Status 11/19 26 Active VTE Mechanical Prophylaxis 11/19 UNK Active MISTAKE 11/19 UNK Active Patient Data 11/18 233 Active Saline Lock 11/[address] in observation 11/18 2253 Active Misc Message 11/18 2253 Active ED Holding Orders 11/18 2253 Active Vital Signs 11/18 2253 Active Code Status 11/18 2253 Complete Intake & Output 11/19 2207 Active CULTURE,URINE 11/19 2055 Active CULTURE,STOOL 11/19 2055 Active C.DIFFICILE 11/19 2055 Active URINALYSIS 11/19 2055 Complete TROPONIN LEVEL 11/19 2055 Complete LIPASE 11/19 2055 Complete LACTIC ACID 11/19 2055 Complete HEPATIC FUNCTION PANEL 11/19 2055 Complete CBC WITHOUT DIFFERENTIAL 11/19 2055 Complete BASIC METABOLIC PANEL 11/19 2055 Complete AMYLASE 11/19 2055 Complete EKG 11/19 2055 Active Current Medications Sig/Isael Start time Last Medication Dose Stop Time Status Admin Donepezil HCl 5 MG DAILY 11/19 1000 AC (Aricept) Enoxaparin Sodium 30 MG DAILY 11/19 1000 AC (Lovenox) Sodium Chloride 1,000 ML Q10H 11/19 0130 AC 11/19 (Normal Saline 0.9%) 0202 Acetaminophen 650 MG Q6P PRN 11/19 0030 AC (Tylenol) Laboratory Tests 11/19/16 0330: Urine Color ORANG H, Urine Clarity CLEAR, Urine pH 6.0, Ur Specific [place] <= 1.005, Urine Protein 30 H, Urine Ketones TRACE H, Urine Nitrite POS H, Urine Bilirubin NEG, Urine Urobilinogen 1.0, Ur Leukocyte Esterase NEG, Ur Microscopic SEDIMENT EXAMINED, Urine RBC 3-5, Urine WBC RARE, Ur Epithelial Cells RARE, Urine Hemoglobin SMALL H, Urine Glucose NEG 11/18/16 2356: Lactic Acid Cancelled 11/18/162110: Anion Gap 12, Estimated GFR > 60, BUN/Creatinine Ratio 23.3, Glucose 100 H, Lactic Acid 2.1, Calcium 8.5, Total Bilirubin 0.8, Direct Bilirubin 0.1, AST 43 H, ALT 52, Alkaline Phosphatase 82, Troponin I 0.02, Total Protein 6.1 L, Albumin 3.3 L, Amylase < 30 L, Lipase 71, CBC w Diff NO MAN DIFF REQ, RBC 3.70 L, MCV 77.3 L, MCH 24.5 L, RDW 22.5 H, MPV 7.7, Gran % 96.2 H, Lymphocytes % 1.9 L, Monocytes % 0.9 L, Eosinophils % 1.0, Basophils % 0 L, Absolute Granulocytes 8.2 H, Absolute Lymphocytes 0.2 L, Absolute Monocytes 0.1 L, Absolute Eosinophils 0.1, Absolute Basophils 0, PUBS MCHC 31.8 L Microbiology 11/19 033 URINE ROUT: Urine Culture - RECD 11/18 2100 STOOL: Clostridium difficile Toxin A & B - RECD 11/18 2100 STOOL: Stool Culture - RECD Diagnostic Imaging: Viewed by Me: CT Scan. Discussed w/RAD: CT Scan. Radiology Impression: ABD/PELVIC... COLONIC THICKENING... FULL REPORT BELOW. Initial ED EKG: normal axis, normal intervals, normal p-waves, normal QRS complex, normal sinus rhythm Comments: PATIENT: REJI BASSETT PRESENT AGE: 80 PATIENT ACCOUNT NO: [id number] : 37 LOCATION: [facility] ORDERING PHYSICIAN: AJIT JOE MD SERVICE DATE: 11/18/16 EXAM TYPE: CAT - CT ABD & PELVIS W IV CONTRAST EXAMINATION: CT ABDOMEN AND PELVIS WITH CONTRAST CLINICAL INFORMATION: Abdominal pain. COMPARISON: CT abdomen and pelvis without contrast 06/10/2015. CT abdomen and pelvis without contrast 11/14/2016. TECHNIQUE: Multidetector volumetric imaging was performed from the superior aspect of the liver through the pubic symphysis following the intravenous administration of 95 mL of Optiray 320. Sagittal and coronal reformatted images were obtained on the technologist's workstation. DLP: 239 mGy-cm FINDINGS: LUNG BASES: Bibasilar subsegmental atelectasis. Interval development of trace bilateral pleural effusions. LIVER, GALLBLADDER, AND BILIARY TREE: The liver is normal in size, shape, and attenuation. No focal hepatic lesion or biliary ductal dilatation is present. There is moderate periportal edema. The gallbladder is distended, without evidence of radiopaque gallstones, gallbladder wall thickening, or obvious pericholecystic inflammatory changes. PANCREAS: Unremarkable. SPLEEN: Unremarkable. ADRENAL GLANDS: Unremarkable. KIDNEYS AND URETERS: Evaluation of the bilateral kidneys and renal collecting systems is notable for several right-sided simple renal cortical cysts visualized measuring up to 3.5 cm within the lower pole of the right kidney. Within the midpole of the right kidney, there is a 2.4 cm simple renal cortical cyst. Interval 0.3 cm simple renal cortical cyst is identified along the upper pole of the left kidney. No renal or ureteral stones are identified and there is no hydroureteronephrosis of either kidney or renal collecting system. BLADDER: Decompressed, but otherwise unremarkable. GASTROINTESTINAL TRACT: Evaluation of the gastrointestinal system demonstrates pancolonic diverticulosis, notably involving the ascending and transverse colon as well as the descending and rectosigmoid colon, without secondary signs of acute diverticulitis. Abdominal and pelvic bowel loops are normal in caliber, without findings indicative of small bowel obstruction or ileus. There is questionable mild circumferential thickening of the colon, without significant pericolonic inflammatory changes. This finding is nonspecific and may be secondary to colonic underdistention although an infectious or inflammatory colitis cannot be excluded in the appropriate clinical setting. No organizing intra-abdominal or pelvic fluid collections and no free intraperitoneal air. Nonvisualization of the appendix. No acute inflammatory changes within the right lower quadrant of the abdomen. ABDOMINAL WALL: A fat-containing left inguinal hernia. A previously identified loop of small bowel within the hernia sac is no longer visualized. LYMPH NODES: No significant abdominal or pelvic adenopathy. VASCULAR: Extensive atherosclerosis of the abdominal aorta and its branching vessels, without aneurysmal dilatation. PELVIC VISCERA: Focal calcifications within the uterus, likely applications sales representative of degenerative uterine fibroids. There is a hypoattenuating structure within the left adnexa measuring 2.7 cm. This may represent a simple ovarian cyst. OSSEOUS STRUCTURES: No acute osseous abnormality. Chronic appearing compression deformities involving the T12 and L1 vertebral bodies with approximately 50% disc height loss of the L1 vertebral body. Moderate to severe multilevel degenerative changes of the lumbar spine. No acute osseous abnormality. IMPRESSION: 1. Questionable circumferential thickening of the colon. No significant pericolonic inflammatory changes. This finding is nonspecific and may be secondary to colonic underdistention although an infectious or inflammatory colitis cannot be excluded in the appropriate clinical setting. Correlate with lab values and patient symptomatology. 2. Pancolonic diverticulosis, without secondary signs of acute diverticulitis. 3. Moderate periportal edema. Correlate with hydration status. 4. Bilateral simple renal cortical cysts. 5. Interval development of trace bilateral pleural effusions. DICTATED BY: JUDI CONKLIN MD DATE/TIME DICTATED:11/18/162242 ASSISTANT WAREHOUSE MANAGER:JOSE ROBERTO DATE/TIME TRANSCRIBED:11/18/162242 CONFIDENTIAL, DO NOT COPY WITHOUT APPROPRIATE AUTHORIZATION. <Electronically signed in Other Vendor System> SIGNED BY: JUDI CONKLIN MD 11/18/16 5909 Departure Departure Disposition: STILL A PATIENT Condition: Stable Clinical Impression Primary Impression: Dehydration Secondary Impressions: Colitis, Diarrhea, Shock Referrals: ELA HODGES,ASH Castillo (PCP/Family) Departure Forms: Customer Survey General Discharge Information Admission Note Spoke With: KARLA WOODWARD MD Documentation of Exam: Documentation of any treatments & extenuating circumstances including Concerns Regarding Discharge (functional status, medication knowledge or non-compliance, living conditions, etc.) that warrant an admission rather than observation: pt with shock, responsive to iv fluid bolus. Likely hypovolemic rather than distributive shock. pt feeling better after iv fluids... will continue to follow symptoms. Critical Care Note Critical Care Note Critical Care Time: 30-74 min Comments: resolved with iv fluids.
--- NOTE | 2016-11-18 21:05 | NUR ---
PT HAD A LARGE BM OF DARK BROWN STOOL WITH A TINGE OF RED. PT C/O OF EPIGASTRIC PAIN. PT BECAME DIZZY WHILE STANDING.
--- NOTE | 2016-11-18 21:08 | NUR ---
AT BEDSIDE UPON ARRIVAL.
--- NOTE | 2016-11-18 21:31 | RADIOLOGY REPORT ---
EXAMINATION: XR PORTABLE CHEST CLINICAL INFORMATION: Cough. COMPARISON: Portable chest x-ray 11/14/2016. TECHNIQUE: Portable frontal view of the chest was obtained. FINDINGS: Mild peribronchial thickening within the bilateral lungs, slightly more conspicuous relative to the prior examination. No focal airspace consolidation and no pleural effusions or pneumothoraces. Cardiomediastinal contours are within normal limits. Soft tissues appear unremarkable. Severe degenerative changes involving the bilateral glenohumeral joints. IMPRESSION: No focal airspace consolidation. However, there appears to be mild bilateral peribronchial thickening, which is nonspecific but could reflect an infectious or inflammatory bronchitis/bronchiolitis. Correlate with patient symptomatology.
[2016-11-18 21:48] LABS: ABSOLUTE BASOPHIL COUNT 0 /CUMM (0.0-0.2); ABSOLUTE EOSINOPHIL COUNT 0.1 /CUMM (0.0-0.7); ABSOLUTE GRANULOCYTE CT 8.2 /CUMM (1.4-6.5); ABSOLUTE LYMPH COUNT 0.2 /CUMM (1.2-3.4); ABSOLUTE MONOCYTE COUNT 0.1 /CUMM (0.10-0.60); BASOPHIL % 0 % (0.0-2.0); HEMATOCRIT 28.6 % (37-47); MEAN CORPUSCULAR HGB 24.5 PG (27.0-31.0); MEAN CORPUSCULAR HGB CONC 31.8 G/DL (33.0-37.0); MEAN CORPUSCULAR VOLUME 77.3 FL (81.0-99.0); MEAN PLATELET VOLUME 7.7 FL (7.4-10.4); PLATELET COUNT 156 /CUMM (130-400); RBC DISTRIBUTION WIDTH 22.5 % (11.5-14.5)
--- NOTE | 2016-11-18 21:50 | NUR ---
PT NO LONGER NAUSEOUS, BP 92/48 MANUALLY.
[2016-11-18 21:56] LABS: GRANULOCYTE % 96.2 % (42.2-75.2); WHITE BLOOD CELL COUNT 8.6 /CUMM (4.8-10.8)
--- NOTE | 2016-11-18 22:09 | NUR ---
PT VERY FORGETFUL, REPETATIVE, CONT ASKS TO UE BR, ON BEDSIDE COMMODE SM LOOSE STOOL VOIDED 100 CCS OF PYRIDIUM COLORED URINE UNABLE TO SENT SAMPLE PT HAD STOOL TOO, PT WITH MULTIPLE CO CO OF L ARM/NECK PAIN ON ARRIVAL THEN CO RT ARM PAIN THEN CO ABD PAIN. "CONSERVATOR" AT BEDSIDE.
--- NOTE | 2016-11-18 22:59 | CT SCAN REPORT ---
EXAMINATION: CT ABDOMEN AND PELVIS WITH CONTRAST CLINICAL INFORMATION: Abdominal pain. COMPARISON: CT abdomen and pelvis without contrast 06/10/2015. CT abdomen and pelvis without contrast 11/14/2016. TECHNIQUE: Multidetector volumetric imaging was performed from the superior aspect of the liver through the pubic symphysis following the intravenous administration of 95 mL of Optiray 320. Sagittal and coronal reformatted images were obtained on the technologist's workstation. DLP: 239 mGy-cm FINDINGS: LUNG BASES: Bibasilar subsegmental atelectasis. Interval development of trace bilateral pleural effusions. LIVER, GALLBLADDER, AND BILIARY TREE: The liver is normal in size, shape, and attenuation. No focal hepatic lesion or biliary ductal dilatation is present. There is moderate periportal edema. The gallbladder is distended, without evidence of radiopaque gallstones, gallbladder wall thickening, or obvious pericholecystic inflammatory changes. PANCREAS: Unremarkable. SPLEEN: Unremarkable. ADRENAL GLANDS: Unremarkable. KIDNEYS AND URETERS: Evaluation of the bilateral kidneys and renal collecting systems is notable for several right-sided simple renal cortical cysts visualized measuring up to 3.5 cm within the lower pole of the right kidney. Within the midpole of the right kidney, there is a 2.4 cm simple renal cortical cyst. Interval 0.3 cm simple renal cortical cyst is identified along the upper pole of the left kidney. No renal or ureteral stones are identified and there is no hydroureteronephrosis of either kidney or renal collecting system. BLADDER: Decompressed, but otherwise unremarkable. GASTROINTESTINAL TRACT: Evaluation of the gastrointestinal system demonstrates pancolonic diverticulosis, notably involving the ascending and transverse colon as well as the descending and rectosigmoid colon, without secondary signs of acute diverticulitis. Abdominal and pelvic bowel loops are normal in caliber, without findings indicative of small bowel obstruction or ileus. There is questionable mild circumferential thickening of the colon, without significant pericolonic inflammatory changes. This finding is nonspecific and may be secondary to colonic underdistention although an infectious or inflammatory colitis cannot be excluded in the appropriate clinical setting. No organizing intra-abdominal or pelvic fluid collections and no free intraperitoneal air. Nonvisualization of the appendix. No acute inflammatory changes within the right lower quadrant of the abdomen. ABDOMINAL WALL: A fat-containing left inguinal hernia. A previously identified loop of small bowel within the hernia sac is no longer visualized. LYMPH NODES: No significant abdominal or pelvic adenopathy. VASCULAR: Extensive atherosclerosis of the abdominal aorta and its branching vessels, without aneurysmal dilatation. PELVIC VISCERA: Focal calcifications within the uterus, likely players club representative of degenerative uterine fibroids. There is a hypoattenuating structure within the left adnexa measuring 2.7 cm. This may represent a simple ovarian cyst. OSSEOUS STRUCTURES: No acute osseous abnormality. Chronic appearing compression deformities involving the T12 and L1 vertebral bodies with approximately 50% disc height loss of the L1 vertebral body. Moderate to severe multilevel degenerative changes of the lumbar spine. No acute osseous abnormality. IMPRESSION: 1. Questionable circumferential thickening of the colon. No significant pericolonic inflammatory changes. This finding is nonspecific and may be secondary to colonic underdistention although an infectious or inflammatory colitis cannot be excluded in the appropriate clinical setting. Correlate with lab values and patient symptomatology. 2. Pancolonic diverticulosis, without secondary signs of acute diverticulitis. 3. Moderate periportal edema. Correlate with hydration status. 4. Bilateral simple renal cortical cysts. 5. Interval development of trace bilateral pleural effusions.
--- NOTE | 2016-11-18 23:13 | NUR ---
PT NOW CO OF L ARM PAIN ON ARRIVAL, PT HAS A NEW OR CONTINUED CO WITH EACH ASSESSMENT.
--- NOTE | 2016-11-18 23:34 | History & Physical ---
General Information and HPI Allergies/Medications Allergies: Coded Allergies: meperidine (From DEMEROL) (UNKNOWN 09/05/16) Home Med list Cholecalciferol (Vitamin D3) (Vitamin D) 2,000 UNIT CAPSULE 1 CAP PO DAILY SUPPLEMENT (Reported) Cyanocobalamin (Vitamin B-12) (Cyanocobalamin Injection) 1,000 MCG/ML VIAL 1 ML IM Q 2 WEEKS SUPPLEMENT (Reported) Donepezil HCl (Aricept) 5 MG TABLET 1 TAB PO DAILY MEMORY (Reported) Ferrous Sulfate (Slow Fe) 142 MG (45 MG IRON) TABLET.ER 1 TAB PO DAILY SUPPLEMENT (Reported) Folic Acid 1 MG TABLET 1 TAB PO DAILY SUPPLEMENT (Reported) Mesalamine (Lialda) 1.2 GRAM TABLET.DR 4 TAB PO DAILY UNKNOWN (Reported) [place]-3 Fatty Acids/Fish Oil (Fish Oil 1,000 MG Capsule) 340 MG-1,000 MG CAPSULE 1 CAP PO DAILY SUPPLEMENT (Reported) Past History Travel History Traveled to [place] past 21 day No Medical History Neurological: dementia EENT: NONE Cardiovascular: hyperlipidemia Respiratory: NONE Gastrointestinal: colitis, diverticulitis Hepatic: NONE Renal: NONE Musculoskeletal: disk herniation Psychiatric: NONE Endocrine: NONE Blood Disorders: anemia 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
--- NOTE | 2016-11-18 23:54 | NUR ---
0K WITH MD FOR PT TO HAVE WATER, PT NOW CO BILAT EAR PAIN. PT STABLE.
[2016-11-19] VITALS (7 sets, daily range): BP systolic 88–98; BP diastolic 50–58
--- NOTE | 2016-11-19 00:07 | NUR ---
PT BED ASSIGNMENT 225-1
--- NOTE | 2016-11-19 00:23 | History & Physical ---
See Addendum General Information and HPI MD Statement: I have seen and personally examined REJI BASSETT DR and documented this H&P. The patient is a 80 year old F who presented with a patient stated chief complaint of nausea vomiting and diarrhea for one DAY[]. Source of Information: patient Exam Limitations: poor historian History of Present Illness: Patient is 80 year old frail female with past medical history significant for dementia, colitis, hyperlipidemia, disc herniation, hyponatremia was recently admitted to [facility] with fever of unknown region and was discharged home on November 17. Patient was very poor historian and was made able to give reliable history but she said that she was very weak and nauseous and she call 911 and she was brought in to the emergency room. She was not very clear that how many times she had loose stool or vomiting but she said admits that she was nauseous and had vague abdominal pain. Echo signs on admission were temperature 98.2, pulse 92, respiratory rate 22 and she was hypotensive to 86/44 later on on fluid administration she came up to 94/ 56. Labs on admission were WBC count 8.4, hemoglobin 9.1, hematocrit 28.6, hematocrit 77.3, platelet count 156, sodium 133, potassium 3.6, chloride 97, BUN 14, creatinine 0.6, troponins 0.02, amylase less than 30 and lipase 71 Chest x-ray showed no focal airspace consolidation Abdominal films CAT scan was significant for 1. Questionable circumferential thickening of the colon. No significant pericolonic inflammatory changes. This finding is nonspecific and may be secondary to colonic underdistention although an infectious or inflammatory colitis cannot be excluded in the appropriate clinical setting. Correlate with lab values and patient symptomatology. 2. Pancolonic diverticulosis, without secondary signs of acute diverticulitis. 3. Moderate periportal edema. Correlate with hydration status. 4. Bilateral simple renal cortical cysts. 5. Interval development of trace bilateral pleural effusions. Allergies/Medications Allergies: Coded Allergies: meperidine (From DEMEROL) (UNKNOWN 09/05/16) Home Med list Cholecalciferol (Vitamin D3) (Vitamin D) 2,000 UNIT CAPSULE 1 CAP PO DAILY SUPPLEMENT (Reported) Cyanocobalamin (Vitamin B-12) (Cyanocobalamin Injection) 1,000 MCG/ML VIAL 1 ML IM Q 2 WEEKS SUPPLEMENT (Reported) Donepezil HCl (Aricept) 5 MG TABLET 1 TAB PO DAILY MEMORY (Reported) Ferrous Sulfate (Slow Fe) 142 MG (45 MG IRON) TABLET.ER 1 TAB PO DAILY SUPPLEMENT (Reported) Folic Acid 1 MG TABLET 1 TAB PO DAILY SUPPLEMENT (Reported) Mesalamine (Lialda) 1.2 GRAM TABLET.DR 4 TAB PO DAILY UNKNOWN (Reported) [place]-3 Fatty Acids/Fish Oil (Fish Oil 1,000 MG Capsule) 340 MG-1,000 MG CAPSULE 1 CAP PO DAILY SUPPLEMENT (Reported) Compliance With Home Meds: UNKNOWN Past History Travel History Traveled to [place] past 21 day No Medical History Neurological: dementia EENT: NONE Cardiovascular: hyperlipidemia Respiratory: NONE Gastrointestinal: colitis, diverticulitis Hepatic: NONE Renal: NONE Musculoskeletal: disk herniation Psychiatric: NONE Endocrine: NONE Blood Disorders: anemia Cancer(s): NONE 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 Psychosocial History Services at Home: None Review of Systems Review of Systems Constitutional: Reports: malaise, weakness. Denies: chills. Cardiovascular: Denies: chest pain, edema. Respiratory: Denies: cough, hemoptysis. GI: Reports: abdominal pain, diarrhea, vomiting. Genitourinary: Denies: dysuria, frequency. Musculoskeletal: Reports: see HPI. Exam & Diagnostic Data Last 24 Hrs of Vital Signs/I&O Vital Signs Date Time Temp Pulse Resp B/P B/P Pulse O2 O2 Flow FiO2 Mean Ox Delivery Rate 11/19 0207 99.1 88 16 90/50 93 Room Air 11/19 0146 98.3 82 22 96/54 98 11/18 2314 88 22 94/56 98 11/18 2150 92/48 11/18 2144 86/44 11/18 2041 98.2 92 22 97 Room Air Intake & Output 11/19 0800 11/19 0000 11/18 1600 Intake Total 650 Output Total 100 Balance 550 Intake, IV 650 Output, Urine 100 Patient 110 lb 135 lb Weight Physical Exam General Appearance Alert, Cooperative, No Acute Distress Cardiovascular Regular Rate, Normal S1, Normal S2, No Murmurs Lungs Normal Air Movement Abdomen Soft, No Tenderness Extremities No Clubbing, No Cyanosis, No Edema Last 24 Hrs of Labs/Clemente: Laboratory Tests 11/19/16329: Urine Color Pending, Urine Clarity Pending, Urine pH Pending, Ur Specific [place] Pending, Urine Protein Pending, Urine Ketones Pending, Urine Nitrite Pending, Urine Bilirubin Pending, Urine Urobilinogen Pending, Ur Leukocyte Esterase Pending, Ur Microscopic Pending, Urine Hemoglobin Pending, Urine Glucose Pending 11/18/162110: Anion Gap 12, Estimated GFR > 60, BUN/Creatinine Ratio 23.3, Glucose 100 H, Lactic Acid 2.1, Calcium 8.5, Total Bilirubin 0.8, Direct Bilirubin 0.1, AST 43 H, ALT 52, Alkaline Phosphatase 82, Troponin I 0.02, Total Protein 6.1 L, Albumin 3.3 L, Amylase < 30 L, Lipase 71, CBC w Diff NO MAN DIFF REQ, RBC 3.70 L, MCV 77.3 L, MCH 24.5 L, RDW 22.5 H, MPV 7.7, Gran % 96.2 H, Lymphocytes % 1.9 L, Monocytes % 0.9 L, Eosinophils % 1.0, Basophils % 0 L, Absolute Granulocytes 8.2 H, Absolute Lymphocytes 0.2 L, Absolute Monocytes 0.1 L, Absolute Eosinophils 0.1, Absolute Basophils 0, PUBS MCHC 31.8 L Microbiology 11/19 329 URINE ROUT: Urine Culture - ORD 11/18 2100 STOOL: Clostridium difficile Toxin A & B - RECD 11/18 2100 STOOL: Stool Culture - RECD Assessment/Plan Assessment: Patient is 80 year old frail female with past medical history significant for dementia, colitis, hyperlipidemia, disc herniation, hyponatremia was recently admitted to [facility] with fever of unknown region and was discharged home on November 17 came with nausea, vomiting and diarrhea resulted in dehydration, hypotension and lethargy. We will admit patient on general medical floor and we will address following problems 1. Abdominal pain, nausea, vomiting and diarrhea be viral gastroenteritis 2. Dehydration/hypotension 3. History of dementia 4. Hyponatremia Plan * We will admit patient on general medical floor * We will give her IV fluids and will monitor her blood pressure closely and will bolus with normal saline if needed * We will monitor her WBC count along with electrolytes and will repeat electrolytes accordingly * CAT scan was negative for any acute diverticulitis and we will watch patient off of antibiotics for now. * Will give her clear liquids and will advance diet as she tolerates * IV antiemetics for nausea and vomiting * PT and OT evaluation in a.m. and patient might need rehabilitation on discharge Clear liquid diet and regular, as accordingly Patient is full code Pharmacological DVT prophylaxis As Ranked By This Provider Problem List: 1. Diarrhea 2. Dehydration Core Measures/Miscellaneous Acute Coronary Syndrome ACS Diagnosis: No Cerebrovascular Accident CVA/TIA Diagnosis: No Congestive Heart Failure CHF Diagnosis: No Venous Thromboembolism VTE Risk Factors: Age > 40 [facility] prophylaxis d/t: No contraindications No VTE Pharm Prophylaxis d/t: No contraindications VTE Diagnosis: No VTE Type: NONE VTE Confirmed by (Test): NONE Severe Sepsis Severe Sepsis Present: No Septic Shock Septic Shock Present: No Miscellaneous Documentation Attending Case Discussed With: ASH MAHMOOD MD Primary Care Physician: ASH MAHMOOD MD Patient sees these Specialists NONE Level of Patient Care: General Medicine
--- NOTE | 2016-11-19 00:41 | NUR ---
PT HAS NOT YET BEEN SEEN BY HOUSESTAFF ALTHOUGH ORDERS ARE IN PLACE.
--- NOTE | 2016-11-19 00:44 | NUR ---
PT CONDITION UNCHANGED REMAINS
--- NOTE | 2016-11-19 00:50 | NUR ---
HOUSESTAFF AT BEDSIDE.
--- NOTE | 2016-11-19 01:06 | NUR ---
HOUSESTAFF REMAINS AT BEDSIDE.
--- NOTE | 2016-11-19 02:21 | NUR ---
PT ARRIVED TO FLOOR AT 0151 VIA STRETCHER. ALERT/CONFUSED ON RA, LUNGS CLEAR, NO DISTRESS, SKIN INTACT. OOB ASSSIT X1 TO TOLIET. IV FLUIDS AT 100ML/HR NS. IV INTACT, BP 90/50 HR 88. HAMMER HEATER NELL DANIELS MD MADE AWARE, 500 ML BOLUS ORDERED. WILL RECHECK BP. PT NEEDS REINORIENTING AND REDIRECTING. NO C/O PAIN. NO C/O NAUSEA, VOMITTING OR DIARRHEA AT THIS TIME. ABD SOFT NONDISTENDED, + BS. WILL CONTINUE TO MONITOR
[2016-11-19 09:13] LABS: ABSOLUTE BASOPHIL COUNT 0 /CUMM (0.0-0.2); ABSOLUTE EOSINOPHIL COUNT 0 /CUMM (0.0-0.7); ABSOLUTE GRANULOCYTE CT 9.7 /CUMM (1.4-6.5); ABSOLUTE LYMPH COUNT 0.4 /CUMM (1.2-3.4); ABSOLUTE MONOCYTE COUNT 0.2 /CUMM (0.10-0.60); BASOPHIL % 0 % (0.0-2.0); EOSINOPHIL % 0.3 % (0-5); GRANULOCYTE % 93.7 % (42.2-75.2); HEMATOCRIT 27.4 % (37-47); MEAN CORPUSCULAR HGB 24.8 PG (27.0-31.0); MEAN CORPUSCULAR HGB CONC 32.2 G/DL (33.0-37.0); MEAN CORPUSCULAR VOLUME 76.9 FL (81.0-99.0); MEAN PLATELET VOLUME 9.2 FL (7.4-10.4); PLATELET COUNT 155 /CUMM (130-400); RBC DISTRIBUTION WIDTH 21.8 % (11.5-14.5); RED BLOOD CELL CT 3.56 /CUMM (4.20-5.40); WHITE BLOOD CELL COUNT 10.3 /CUMM (4.8-10.8)
--- NOTE | 2016-11-19 10:36 | NUR ---
1015- PT A/V/OX2. CONFUSED. IMPULSIVE. PULLED IV OUT AND STATES "I JUST DONT LIKE IT". GAIT UNSTEADY. PHY THERAPY EVAL AGREES GAIT UNSTEADY. CONTINUOUSLY ATTEMPTS TO GET UP WITHOUT USING CALL LIGHT FOR ASSIST. BED AND CHAIR ALARM IN PLACE AND PT CONTINUALLY GETS UP AND IS UNSTEADY. B/P 78/46, HR 86, RR 18, O2 SAT [address] KERVIN OCHOA NOTIFIED OF ABOVE. IV BOLUS ORDERED. PT HAS ALREADY HAD IV BOLUSES SINCE ADMISSION. PT SAFETY MONITOR ORDERED FOR UNSAFE AMBULATION. WILL CONTINUE TO MONITOR.
--- NOTE | 2016-11-19 11:40 | NUR ---
1130-B/P 88/52, HR 80. IV BOLUS COMPLETED. IVF AT 100 ML/HR. DR. OCHOA NOTIFIED OF ABOVE.
--- NOTE | 2016-11-19 16:53 | PN- Att Addend ---
Attending Addendum Attending Brief Note 80-year-old female was recently in the hospital for fever of unknown origin has gone home, apparently not eating or drinking much she is weak medications nauseous not clear if she has any diarrhea comes into the emergency room a little hypotensive. CAT scan of the abdomen not very remarkable. Other labs showed a white count of 10,300, hemoglobin 8.8 x 2 crit 27.4, potassium 4.3 by sodium 136, BUN 12, creatinine 0.6 clinically she might a little dry. She will be kept on observation have gentle hydration will have a PT evaluation but she might benefit from short-term rehabilitation. Laboratory Tests 11/19 11/19 0652 0330 Chemistry Sodium (137 - 145 mmol/L) 136 L Potassium (3.5 - 5.1 mmol/L) 4.3 Chloride (98 - 107 mmol/L) 103 Carbon Dioxide (22 - 30 mmol/L) 23 Anion Gap (5 - 16) 11 BUN (7 - 17 mg/dL) 12 Creatinine (0.5 - 1.0 mg/dL) 0.6 Estimated GFR (>60 ml/min) > 60 BUN/Creatinine Ratio (7 - 25 %) 20.0 Hematology CBC w Diff NO MAN DIFF REQ WBC (4.8 - 10.8 /CUMM) 10.3 RBC (4.20 - 5.40 /CUMM) 3.56 L Hgb (12.0 - 16.0 G/DL) 8.8 L Hct (37 - 47 %) 27.4 L MCV (81.0 - 99.0 FL) 76.9 L MCH (27.0 - 31.0 PG) 24.8 L RDW (11.5 - 14.5 %) 21.8 H Plt Count (130 - 400 /CUMM) 155 MPV (7.4 - 10.4 FL) 9.2 Gran % (42.2 - 75.2 %) 93.7 H Lymphocytes % (20.5 - 51.1 %) 4.0 L Monocytes % (1.7 - 9.3 %) 2.0 Eosinophils % (0 - 5 %) 0.3 Basophils % (0.0 - 2.0 %) 0 L Absolute Granulocytes (1.4 - 6.5 /CUMM) 9.7 H Absolute Lymphocytes (1.2 - 3.4 /CUMM) 0.4 L Absolute Monocytes (0.10 - 0.60 /CUMM) 0.2 Absolute Eosinophils (0.0 - 0.7 /CUMM) 0 Absolute Basophils (0.0 - 0.2 /CUMM) 0 PUBS MCHC (33.0 - 37.0 G/DL) 32.2 L Urines Urine Color (YEL,AMB,STR) ORANG H Urine Clarity (CLEAR) CLEAR Urine pH (5.0 - 8.0) 6.0 Ur Specific [place] (1.001 - 1.035) <= 1.005 Urine Protein (NEG,<30 MG/DL) 30 H Urine Ketones (NEG) TRACE H Urine Nitrite (NEG) POS H Urine Bilirubin (NEG) NEG Urine Urobilinogen (0.1 - 1.0 EU/dl) 1.0 Ur Leukocyte Esterase (NEG) NEG Ur Microscopic SEDIMENT EXAMINED Urine RBC (0 - 5 /HPF) 3-5 Urine WBC (0 - 2 /HPF) RARE Ur Epithelial Cells (NONE,FEW) RARE Urine Hemoglobin (NEG) SMALL H Urine Glucose (N MG/DL) NEG 11/18 11/18 2356 2111 Chemistry Sodium (137 - 145 mmol/L) 133 L Potassium (3.5 - 5.1 mmol/L) 3.6 Chloride (98 - 107 mmol/L) 97 L Carbon Dioxide (22 - 30 mmol/L) 23 Anion Gap (5 - 16) 12 BUN (7 - 17 mg/dL) 14 Creatinine (0.5 - 1.0 mg/dL) 0.6 Estimated GFR (>60 ml/min) > 60 BUN/Creatinine Ratio (7 - 25 %) 23.3 Glucose (65 - 99 mg/dL) 100 H Lactic Acid (0.7 - 2.1 mmol/L) Cancelled 2.1 Calcium (8.4 - 10.2 mg/dL) 8.5 Total Bilirubin (0.2 - 1.3 mg/dL) 0.8 Direct Bilirubin (< 0.4 mg/dL) 0.1 AST (14 - 36 U/L) 43 H ALT (9 - 52 U/L) 52 Alkaline Phosphatase (<127 U/L) 82 Troponin I (< 0.11 ng/ml) 0.02 Total Protein (6.3 - 8.2 g/dL) 6.1 L Albumin (3.5 - 5.0 g/dL) 3.3 L Amylase (30 - 110 U/L) < 30 L Lipase (23 - 300 U/L) 71 Hematology CBC w Diff NO MAN DIFF REQ WBC (4.8 - 10.8 /CUMM) 8.6 RBC (4.20 - 5.40 /CUMM) 3.70 L Hgb (12.0 - 16.0 G/DL) 9.1 L Hct (37 - 47 %) 28.6 L MCV (81.0 - 99.0 FL) 77.3 L MCH (27.0 - 31.0 PG) 24.5 L RDW (11.5 - 14.5 %) 22.5 H Plt Count (130 - 400 /CUMM) 156 MPV (7.4 - 10.4 FL) 7.7 Gran % (42.2 - 75.2 %) 96.2 H Lymphocytes % (20.5 - 51.1 %) 1.9 L Monocytes % (1.7 - 9.3 %) 0.9 L Eosinophils % (0 - 5 %) 1.0 Basophils % (0.0 - 2.0 %) 0 L Absolute Granulocytes (1.4 - 6.5 /CUMM) 8.2 H Absolute Lymphocytes (1.2 - 3.4 /CUMM) 0.2 L Absolute Monocytes (0.10 - 0.60 /CUMM) 0.1 L Absolute Eosinophils (0.0 - 0.7 /CUMM) 0.1 Absolute Basophils (0.0 - 0.2 /CUMM) 0 PUBS MCHC (33.0 - 37.0 G/DL) 31.8 L
[2016-11-20 06:23] VITALS: BP 110/60
--- NOTE | 2016-11-20 07:51 | PN- Housestaff ---
Subjective Follow-up For: fever hpotension Subjective: Seen and examined patient. offers no complaints. she is already dressed and wishes to be discharged today. Ms was independantly ambulating around the floor. Review of Systems Constitutional: Denies: chills, diaphoresis, fever, malaise, weakness, unexplained weight loss. Cardiovascular: Denies: chest pain, edema, orthopena, palpitations, peripheral edema, syncope. Respiratory: Denies: cough, hemoptysis, orthopnea, short of breath, sputum production, stridor, wheezing. Objective Last 24 Hrs of Vital Signs/I&O Vital Signs Date Time Temp Pulse Resp B/P B/P Pulse O2 O2 Flow FiO2 Mean Ox Delivery Rate 11/20 0623 98.9 85 18 110/60 94 Room Air / 2248 98.2 83 18 90/54 96 Room Air 05/ 1430 97.8 74 18 92/58 95 Room Air 05/06 1400 74 92/58 05/06 1300 70 90/52 05/ 1139 80 88/52 Intake & Output 11/20 1600 / 0800 05/ 0000 Intake Total 1040 1000 Output Total 1400 Balance 1040 -400 Intake, IV 800 600 Intake, Oral 240 400 Number 0 3 Bowel Movements Output, Urine 1400 Physical Exam General Appearance: Cooperative, No Acute Distress Cardiovascular: Regular Rate, Normal S1, Normal S2 Lungs: Clear to Auscultation, Normal Air Movement Current Medications: Current Medications Sig/Isael Start time Last Medication Dose Route Stop Time Status Admin Acetaminophen 650 MG Q6P PRN / 0030 AC / PO 0625 Donepezil HCl 5 MG DAILY 11/19 1000 AC 05/ PO 0831 Enoxaparin Sodium 30 MG DAILY / 1000 AC 05/ SC 1029 Sodium Chloride 1,000 ML BOLUS ONE 11/19 1030 DC 05/06 IV 05/06 1229 1030 Sodium Chloride 1,000 ML BOLUS ONE / 1030 DC 05/06 IV 05/06 1229 1031 Sodium Chloride 1,000 ML Q10H / 0130 AC 05/ IV 0603 Assessment/Plan Assessment: 80 year old frail female with past medical history significant for dementia, colitis, hyperlipidemia, disc herniation, hyponatremia was recently admitted to [facility] with fever of unknown region and was discharged home on November 17. Chest x-ray showed no focal airspace consolidation. Abdominal films CAT scan 1. Questionable circumferential thickening of the colon. No significant pericolonic inflammatory changes. This finding is nonspecific and may be secondary to colonic underdistention although an infectious or inflammatory colitis cannot be excluded in the appropriate clinical setting 1. Abdominal pain, nausea, vomiting and diarrhea be viral gastroenteritis 2. Dehydration/hypotension 3. History of dementia 4. Hyponatremia Plan * continue on [facility] floor, vitals per protocol. * tolerating her full liquid diet, will advance her diet to regular diet * vitals are stable * There is a question of safe discharge, this is her third readmission. Will discuss with CM what her options are. Patient is full code Pharmacological DVT prophylaxis Problem List: 1. Hyponatremia 2. SIRS (systemic inflammatory response syndrome) 3. Dehydration 4. Shock Pain Ratin Pain Location: na Pain Goal: Pain 4 or less Pain Plan: current regimen Tomorrow's Labs & Rationales: none required
--- NOTE | 2016-11-20 10:00 | Patient Discharge Instructions ---
Discharge Instructions General Discharge Information You were seen/treated for: low blood pressure You had these procedures: CXR abdomen and pelvis Special Instructions: please follow up with your primary care doctor within one week of discharge Diet Continue normal diet: Yes Acute Coronary Syndrome Inclusion Criteria At DC or during hospital stay patient has or had the following: ACS DIAGNOSIS No Discharge Core Measures Meds if any: Prescribed or Continued at Discharge THIAGO/ARB if EF <40% No Meds if any: NOT Prescribed or Continued at Discharge Congestive Heart Failure Inclusion Criteria At DC or during hospital stay patient has or had the following: CHF DIAGNOSIS No Discharge Core Measures Meds if any: Prescribed or Continued at Discharge Meds if any: NOT Prescribed or Continued at Discharge Cerebrovascular accident Inclusion Criteria At DC or during hospital stay patient has or had the following: CVA/TIA Diagnosis No Discharge Core Measures Meds if any: Prescribed or Continued at Discharge Meds if any: NOT Prescribed or Continued at Discharge Venous thromboembolism Inclusion Criteria VTE Diagnosis No VTE Type NONE VTE Confirmed by (Test) NONE Discharge Core Measures - Per Current guidelines, there needs to be overlap - treatment for the first 5 days of Warfarin therapy. - If discharged on Warfarin prior to 5 days of - overlap therapy, the patient will need to be - assessed for post discharge needs including - *Post discharge parental anticoagulation - *Warfarin and/or parental anticoagulation education - *Follow up date to check INR post discharge At least 5 days overlap therapy as Inpatient No Meds if any: Prescribed or Continued at Discharge Note: Overlap Therapy is Warfarin and Anticoagulant Meds if any: NOT Prescribed or Continued at Discharge
--- NOTE | 2016-11-20 13:40 | PN- Att Addend ---
Attending Addendum Attending Brief Note Patient still on observation. Had a sitter in the room, patient wants to go home but not eating or drinking. Patient is still weak and she says "I'm okay" family and POA at the bedside no new changes on physical. Would have the monitor stay out of the room, monitor today and reassess tomorrow to see she is appropriate for short-term rehabilitation Current Medications Sig/Isael Start time Last Medication Dose Route Stop Time Status Admin Acetaminophen 650 MG Q6P PRN 11/19 0030 AC 11/20 PO 0625 Donepezil HCl 5 MG DAILY 11/19 1000 AC 11/20 PO 0831 Enoxaparin Sodium 30 MG DAILY 11/19 1000 AC 11/19 SC 1029 Sodium Chloride 1,000 ML Q10H 11/19 0130 AC 11/20 IV 0603 Vital Signs Date Time Temp Pulse Resp B/P B/P Pulse O2 O2 Flow FiO2 Mean Ox Delivery Rate 11/20 622 98.9 85 18 110/60 94 Room Air
--- NOTE | 2016-11-20 15:46 | NUR ---
PT INQUIRING WHY SHE NEEDS IV FLUIDS, EXPLAINED TO PT MEDICAL NEED. PT STATED "I'M GOING TO RIP THIS WHOLE THING OUT OF MY ARM". THIS RN DISCONNECTED PT FROM FLUIDS, NOTIFIED MD KERVIN OCHOA. WILL RECONNECT WHEN PT CALMER.
[2016-11-20 15:52] VITALS: BP 100/60
[2016-11-20 21:41] VITALS: BP 110/56
[2016-11-21 06:30] VITALS: BP 126/70
--- NOTE | 2016-11-21 06:33 | PN- Housestaff ---
Subjective Follow-up For: fever hypotension failure to thrive Subjective: Seen and examined patient. offers no complaints. Has no insight of what is happening. Thinks someone is coming to pick her up Review of Systems Constitutional: Denies: chills, diaphoresis, fever, malaise, weakness, unexplained weight loss. Cardiovascular: Denies: chest pain, edema, orthopena, palpitations, peripheral edema, syncope. Objective Last 24 Hrs of Vital Signs/I&O Vital Signs Date Time Temp Pulse Resp B/P B/P Pulse O2 O2 Flow FiO2 Mean Ox Delivery Rate 11/21 0530 98.6 87 20 126/70 95 Room Air 11/20 2141 98.2 82 20 110/56 96 Room Air 11/20 1552 97.9 84 18 100/60 97 Intake & Output 11/21 1600 11/21 0800 11/21 0000 Intake Total 250 300 Output Total Balance 250 300 Intake, IV 0 0 Intake, Oral 250 300 Physical Exam General Appearance: Cooperative, No Acute Distress Cardiovascular: Regular Rate, Normal S1, Normal S2 Lungs: Clear to Auscultation, Normal Air Movement Abdomen: Normal Bowel Sounds, Soft, No Tenderness Extremities: No Edema Current Medications: Current Medications Sig/Isael Start time Last Medication Dose Route Stop Time Status Admin Acetaminophen 650 MG Q6P PRN 11/19 0030 AC / PO 0625 Donepezil HCl 5 MG DAILY 11/19 1000 AC 05/06 PO 1029 Enoxaparin Sodium 30 MG DAILY 11/19 1000 AC 05/ SC 1029 Sodium Chloride 1,000 ML Q10H 11/19 0130 AC / IV 0603 Assessment/Plan Assessment: 80 year old frail female with past medical history significant for dementia, colitis, hyperlipidemia, disc herniation, hyponatremia was recently admitted to [facility] with fever of unknown region and was discharged home on November 17. Chest x-ray showed no focal airspace consolidation. Abdominal films CAT scan 1. Questionable circumferential thickening of the colon. No significant pericolonic inflammatory changes. This finding is nonspecific and may be secondary to colonic underdistention although an infectious or inflammatory colitis cannot be excluded in the appropriate clinical setting 1. Abdominal pain, nausea, vomiting and diarrhea be viral gastroenteritis 2. Dehydration/hypotension 3. History of dementia 4. Hyponatremia 5. failure to thrive Plan * continue on gen [facility] floor, vitals per protocol. * tolerating her full liquid diet, will advance her diet to regular diet * vitals are stable * Her health care proxy Chelo is concerned that when she is discharge home dispite 24 hour care, she has poor PO intake. She will benefit from STR. Patient is full code Pharmacological DVT prophylaxis Problem List: 1. Fever 2. Dementia 3. Failure to thrive Pain Ratin Pain Location: na Pain Goal: Pain 4 or less Pain Plan: current regimen Tomorrow's Labs & Rationales: none required
--- NOTE | 2016-11-21 09:19 | PN- Att Addend ---
Attending Addendum Attending Brief Note Patient reports having regular bowel movement this morning. She denies nausea or vomiting. General Appearance: Not oriented Skin: Grossly normal HEENT: PEERLA Neck: Supple, No JVD Cardiovascular: Regular Rate, Normal S1, Normal S2, No Murmurs Lungs: Clear to Auscultation, Normal Air Movement Abdomen: Normal Bowel Sounds, Soft, No Tenderness Neurological: Normal Speech, Strength at 5/5 X4 Ext, Cranial Nerves 3-12 NL, Reflexes 2+ Extremities: No Clubbing, No Cyanosis, No Edema Vascular: Normal Pulses Assessment GI symptoms mostly resolved. Likely gastroenteritis. She has remained afebrile during this admission and anaplasma from prior admission is pending. Patient is however doing poorly at home including poor intake likely secondary to lack of supervision. She will need placement to rehabilitation. Plan Continue current supportive care Encourage by mouth diet PT evaluation Plan for STR placement Current Medications Sig/Isael Start time Last Medication Dose Route Stop Time Status Admin Acetaminophen 650 MG Q6P PRN / 0030 AC / PO 0625 Donepezil HCl 5 MG DAILY 11/19 1000 AC 05/ PO 1029 Enoxaparin Sodium 30 MG DAILY 11/19 1000 AC 05/06 SC 1029 Sodium Chloride 1,000 ML Q10H 11/19 0130 AC 05/ IV 0603 Vital Signs Date Time Temp Pulse Resp B/P B/P Pulse O2 O2 Flow FiO2 Mean Ox Delivery Rate 11/21 0630 98.6 87 20 126/70 95 Room Air / 2141 98.2 82 20 110/56 96 Room Air / 1552 97.9 84 18 100/60 97
--- NOTE | 2016-11-21 09:22 | NUR ---
Physical Therapy: Pt is currently ambulating with Supervision due to mentation. Pt has 24 hour care at home. Acute skilled PT is no longer indicated at this time. Will not continue to follow. Thank you.
--- NOTE | 2016-11-21 11:08 | Discharge Summary ---
Visit Information Visit Dates Admission Date: 11/18/16 Discharge Date: 11/21/16 Hospital Course Course Attending Physician: ASH MAHMOOD MD Primary Care Physician: ASH MAHMOOD MD Hospital Course: Christiane is a 72-year-old woman with a medical history of dementia colitis dyslipidemia disc herniation hyponatremia, recent admission to hospital with discharge diagnoses of fever of unknown origin (discharged 11/17/2016) who was admitted to the hospital for uncontrollable/intractable nausea vomiting diarrhea resulting in dehydration hypertension lethargy. She was admitted to the medical floor and hydrated with intravenous fluid, electrolytes were repleted, she was given supportive therapy with intravenous antiemetics for nausea and vomiting. Clear liquid diet was advanced as tolerated by the patient. Her blood pressure normalized with intravenous fluids. CAT scan of the abdomen and pelvis did not not reveal any acute injury abdominal pathology and she was watched off of antibiotics. Her low sodium was 133, and was not thought to be contributing to her altered sensorium. PT and OT evaluation was requested to assess needs on discharge. Problems: Intractable abdominal pain nausea vomiting diarrhea secondary to presumed viral gastroenteritis Dehydration/hypotension Baseline dementia Hyponatremia Allergies: Coded Allergies: meperidine (From DEMEROL) (UNKNOWN 09/05/16) Pertinent Lab Results: Vital Signs Date Time Temp Pulse Resp B/P B/P Pulse O2 O2 Flow FiO2 Mean Ox Delivery Rate 11/21 0630 98.6 87 20 126/70 95 Room Air 05/07 2141 98.2 82 20 110/56 96 Room Air 05/07 1552 97.9 84 18 100/60 97 05/07 0623 98.9 85 18 110/60 94 Room Air 05/06 2248 98.2 83 18 90/54 96 Room Air 05/06 1430 97.8 74 18 92/58 95 Room Air 05/06 1400 74 92/58 05/06 1300 70 90/52 05/06 1139 80 88/52 05/06 0427 99.3 81 18 98/50 93 Room Air 05/06 0207 99.1 88 16 90/50 93 Room Air 05/06 0146 98.3 82 22 96/54 98 05/05 2314 88 22 94/56 98 05/05 2150 92/48 05/05 2144 86/44 05/05 2041 98.2 92 22 97 Room Air Last 24 Hours I&Os 11/21 1600 08 0800 11/21 0000 Intake Total 250 300 Output Total Balance 250 300 Intake, IV 0 0 Intake, Oral 250 300 Patient 110 lb Weight Microbiology Date/Time Procedure - Status Source Growth 11/19 033 Urine Culture - RES URINE ROUT 11/18 2100 Clostridium difficile Toxin A & B - COMP STOOL 11/18 2100 Stool Culture - COMP STOOL Orders Procedure Date/time Status Regular Diet 11/20 D Active Patient Safety Monitor 11/20 1326 Active Therapeutic Activities 11/20 UNK Complete Gait Training 11/20 UNK Complete Full Liquid Diet 11/19 D Complete Clear Liquid Diet 11/19 B Complete PT Evaluate & Treat 11/19 599 Active CBC WITHOUT DIFFERENTIAL 11/19 599 Complete BASIC ELECTROLYTES PLUS BUN&CR 11/19 599 Complete Vital Signs 11/20 211 Active Teach/Educate 11/20 211 Active Pain Treatment and Response 11/20 211 Active Nutritional Intake, Monitor 11/20 211 Active Isolation 11/20 211 Active Intake & Output 11/20 211 Active Patient Care Conference 11/20 211 Active Activity/Ambulation 11/20 211 Active Pathway - chart 11/19 0027 Active House Staff 11/19 0027 Active Patient Data 11/19 0027 Active Code Status 11/19 0027 Active PT EVAL MOD COMPLEX 30 MIN 11/19 UNK Complete Gait Training 11/19 UNK Complete VTE Mechanical Prophylaxis 11/19 UNK Active MISTAKE 11/19 UNK Active Patient Safety Monitor 11/19 UNK Complete Continuous Observation Monitor 11/19 UNK Complete Patient Data 11/18 2332 Active Saline Lock 11/[address] in observation 11/18 2253 Active Misc Message 11/18 225 Active ED Holding Orders 11/18 225 Active Vital Signs 11/18 225 Active Code Status 11/18 225 Complete Intake & Output 11/19 2207 Active CULTURE,URINE 11/19 2055 Active CULTURE,STOOL 11/19 2055 Complete C.DIFFICILE 11/19 2055 Complete URINALYSIS 11/19 2055 Complete TROPONIN LEVEL 11/19 2055 Complete LIPASE 11/19 2055 Complete LACTIC ACID 11/19 2055 Complete HEPATIC FUNCTION PANEL 11/19 2055 Complete CBC WITHOUT DIFFERENTIAL 11/19 2055 Complete BASIC METABOLIC PANEL 11/19 2055 Complete AMYLASE 11/19 2055 Complete EKG 11/19 2055 Active Disposition Summary Disposition Principal Diagnosis: SEE ABOVE Additional Diagnosis: SEE ABOVE Discharge Disposition: home or self care Discharge Instructions General Discharge Information Code Status: Full Code Patient's Diet: REGULAR Patient's Activity: SELF LIMITED Follow-Up Instructions/Appts: Follow-up Ash Mahmood MD-her primary medical doctor Medications at Discharge Discharge Medications: Continue taking these medications: Ferrous Sulfate (Slow Fe) 142 MG (45 MG IRON) TABLET.ER 1 Tablet ORAL DAILY Comments: NOT GIVEN IN HOSPITAL Mesalamine (Lialda) 1.2 GRAM TABLET.DR 4 Tablet ORAL DAILY Qty = 60 Comments: NOT GIVEN IN HOSPITAL Donepezil HCl (Aricept) 5 MG TABLET 1 Tablet ORAL DAILY Comments: Last Taken: 11/21/16 Time:1000 [place]-3 Fatty Acids/Fish Oil (Fish Oil 1,000 MG Capsule) 340 MG-1,000 MG CAPSULE 1 Capsule ORAL DAILY Comments: NOT GIVEN IN HOSPITAL Cyanocobalamin (Vitamin B-12) (Cyanocobalamin Injection) 1,000 MCG/ML VIAL 1 Milliliters INTRAMUSC EVERY 2 WEEKS Comments: NOT GIVEN IN HOSPITAL Cholecalciferol (Vitamin D3) (Vitamin D) 2,000 UNIT CAPSULE 1 Capsule ORAL DAILY Qty = 30 Comments: NOT GIVEN IN HOSPITAL Folic Acid (Folic Acid) 1 MG TABLET 1 Tablet ORAL DAILY Comments: NOT GIVEN IN HOSPITAL Copies To: ELA HODGES,ASH Castillo Attending MD Review Statement Documenting Attending: UTE HODGES,ESHA UNGER MD,ESHA
--- NOTE | 2016-11-21 13:31 | Cons- Psychiatry ---
Psychiatric Consult Date of Consult: 11/21/16 Reason for Consult: "depression" Ordered by Dr. Chappell History of Present Illness: Identifying Info: 80-year-old single female presents to [facility] emergency department on 11/18/2016 with N/V/D. Admitted to [facility] for observation. CC: "I think fine" HPI: Patient interviewed with her conservator of person, Porter, as she is a difficult time remembering things. Sunny reports that the patient has been "getting down" due to being stuck in institutions lately. She's had multiple hospitalizations and at the beginning of October was involuntarily currently admitted at [facility] in [place]. Per their report she has a brother and she is quite afraid of who orchestrated her admission she was subsequently released after a probate hearing was requested. She is wealthy and she fears that her brother and his family are going to take her money. They have dropped her home in the past and taken her cars, she no longer drives. The patient is afraid of what her brother might be capable of. PMH: Please see the H&P for a complete listing Colitis, hyperlipidemia, disc herniation, hyponatremia Family Psych History: ?Uncle Autism Substance History 1 drink occationally Never smoker -Treatment None Family Substance History: Denies Social: Born and raised in [place]. Has several advanced college degrees including a PhD and a KERWIN. 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 She lives alone but has 24 hour care. Abuse/Trauma: Recent involuntary commitment Current Home Psychotropic Medications: None Current Hospital Psychotropic Medications: None Allergies: Coded Allergies: meperidine (From DEMEROL) (UNKNOWN 09/05/16) Current Medications: Current Medications Sig/Isael Start time Last Medication Dose Route Stop Time Status Admin Acetaminophen 650 MG Q6P PRN 11/19 0030 AC 05/08 PO 1012 Donepezil HCl 5 MG DAILY 11/19 1000 AC 05/08 PO 1012 Enoxaparin Sodium 30 MG DAILY 11/19 1000 AC 05/06 SC 1029 Sodium Chloride 1,000 ML Q10H 11/19 0130 AC 05/ IV 0603 Past History Past Medical History Neurological: dementia EENT: NONE Cardiovascular: hyperlipidemia Respiratory: NONE Gastrointestinal: colitis, diverticulitis Hepatic: NONE Renal: NONE Musculoskeletal: disk herniation Psychiatric: NONE Endocrine: NONE Blood Disorders: anemia Cancer(s): NONE FIRE PROTECTION ENGINEER/Reproductive: NONE Past Surgical History Surgical History: appendectomy, hysterectomy (partial), laminectomy (cervical) Psychosocial History Strengths/Capabilities: Well educated, supportive conservator Physical Limitations (Interventions): Dementia Psychiatric Treatment History Psych Treatment Psychiatric Treatment No Diagnosis: Unspecified neurocognitive disorder Risk Factors: age (under 24/over 65), lives alone Substance Use/Abuse History Drug Use/Abuse Substances Used/Abused No Substance Abuse Treatment Substance Abuse Treatment Past Substance Abuse [place] No Assessment/Plan Mental Status Mental Status Exam: Mental Status Exam Presentation/Appearance: Cooperative with evaluation. Street clothes. Well groomed. Orientation: x3 Sensorium: Awake and alert Eye contact: Appropriate Affect: Full range Mood: "Great" Depression: Denies - conservator disagrees Anxiety: Denies - conservator disagrees Thought Content: - Denies SI/HI, AH/VH, PI. States and also believes they will not kill themselves. - Denies Hopeless/Helpless Thoughts Thought Process: Perseveration on fear r/t brother harming her Associations: Appropirate Speech: Repetitive, patient often repeats her self, somewhat dysarthric Judgment: Fair Insight: Fair Cognition: Memory: Short-term deficits, long-term appears more intact able to state many facts of her childhood Attention/Concentration: Grossly intact Fund of Knowledge: Adequate Abstractions: Did not assess MMSE: Did not assess Brief ROS Gait: Steady Sleep: Adequate Appetite: Adequate Energy: Adequate IADLs/ADLs: With assistence Patient declines psychotropic medication at this time. Lab Results: Laboratory Tests 11/19/16 0652: Anion Gap 11, Estimated GFR > 60, BUN/Creatinine Ratio 20.0, CBC w Diff NO MAN DIFF REQ, RBC 3.56 L, MCV 76.9 L, MCH 24.8 L, RDW 21.8 H, MPV 9.2, Gran % 93.7 H, Lymphocytes % 4.0 L, Monocytes % 2.0, Eosinophils % 0.3, Basophils % 0 L, Absolute Granulocytes 9.7 H, Absolute Lymphocytes 0.4 L, Absolute Monocytes 0.2, Absolute Eosinophils 0, Absolute Basophils 0, PUBS MCHC 32.2 L 11/19/16 0330: Urine Color ORANG H, Urine Clarity CLEAR, Urine pH 6.0, Ur Specific [place] <= 1.005, Urine Protein 30 H, Urine Ketones TRACE H, Urine Nitrite POS H, Urine Bilirubin NEG, Urine Urobilinogen 1.0, Ur Leukocyte Esterase NEG, Ur Microscopic SEDIMENT EXAMINED, Urine RBC 3-5, Urine WBC RARE, Ur Epithelial Cells RARE, Urine Hemoglobin SMALL H, Urine Glucose NEG 11/18/16 2356: Lactic Acid Cancelled 11/18/162110: Anion Gap 12, Estimated GFR > 60, BUN/Creatinine Ratio 23.3, Glucose 100 H, Lactic Acid 2.1, Calcium 8.5, Total Bilirubin 0.8, Direct Bilirubin 0.1, AST 43 H, ALT 52, Alkaline Phosphatase 82, Troponin I 0.02, Total Protein 6.1 L, Albumin 3.3 L, Amylase < 30 L, Lipase 71, CBC w Diff NO MAN DIFF REQ, RBC 3.70 L, MCV 77.3 L, MCH 24.5 L, RDW 22.5 H, MPV 7.7, Gran % 96.2 H, Lymphocytes % 1.9 L, Monocytes % 0.9 L, Eosinophils % 1.0, Basophils % 0 L, Absolute Granulocytes 8.2 H, Absolute Lymphocytes 0.2 L, Absolute Monocytes 0.1 L, Absolute Eosinophils 0.1, Absolute Basophils 0, PUBS MCHC 31.8 L Microbiology 11/19 0330 URINE ROUT: Urine Culture - COMP 11/18 2100 STOOL: Clostridium difficile Toxin A & B - COMP 11/18 2100 STOOL: Stool Culture - COMP Diffential Diagnosis: Unspecified neurocognitive disorder Rule out mood disorder Impression: 80-year-old single female presents with some anxiety and depression in the context of dementia as well as fear of financial abuse hands of her family. Per her conservators report her fears are well founded and family arranged to have the patient involuntarily committed less than one month ago. The patient was subsequently released. She would likely benefit from a psychotropic medication but declines at this time. Provisional Treatment Plan: 1. Please have patient followed by outpatient neurology. 2. Consider referral to gerontologist. 3. Patient to follow-up with her conservator and lure maker. 4. If you're feeling unsafe or fear for person call 911. 5. Pt provided contact info for OPS if she would like to f/u with psychiatric care. 6. Discussed case with SW, EPS will be called. Thank you for including psychiatry in this case we are signing off.
[2016-11-21 13:55] VITALS: BP 118/60
== END 2016-11-21 14:26 ==
LOC: ERH 20:36 → 2NA 22:54 → ERHI 22:54 → ENRESERV 23:47 → 2NA 11-19 01:52 → ENPENDDIS 11-21 12:10 → 2NA 11-21 14:26
PROVIDERS: Internal Medicine; Pediatrics; ADMIT Internal Medicine
DX: A08.4 Viral intestinal infection, unspecified (principal); E86.0 Dehydration; F03.90 Unspecified dementia, unspecified severity, without behavioral disturbance, psychotic disturbance, mood disturbance, and anxiety; K52.9 Noninfective gastroenteritis and colitis, unspecified; E78.5 Hyperlipidemia, unspecified
CPT/HCPCS: 74177; 81001; 82436; 87045; 87086; 93005; 93010; 96361; 96372; 96374; 97116-GO; 97162-GP; 97530-GO; G0378; J1650; J2405

== ENCOUNTER 2017-08-18 20:25 | Emergency (ER) | payer OTHER ==
[~2017-08-18] VITALS: Ht 162.6 cm; Wt 56.7 kg
--- NOTE | 2017-08-18 21:08 | ED NEURO DEFICIT/STROKE ---
History of Present Illness General Chief Complaint: Altered Mental Status Stated Complaint: BIBA AMS Source: patient, HOME HEALTH AID Exam Limitations: dementia Vital Signs & Intake/Output Vital Signs & Intake/Output Vital Signs Date Time Temp Pulse Resp B/P B/P Pulse O2 O2 Flow FiO2 Mean Ox Delivery Rate 08/18 2207 74 18 91/54 98 08/18 2039 97.8 84 18 108/66 97 Allergies Coded Allergies: meperidine (From DEMEROL) (UNKNOWN 09/05/16) Reconcile Medications Budesonide (Uceris) 9 MG TABDR...ER 1 TAB PO DAILY COLITIS (Reported) Cholecalciferol (Vitamin D3) (Vitamin D) 5,000 UNIT TABLET 1 TAB PO DAILY SUPPLEMENT (Reported) Cyanocobalamin (Vitamin B-12) (Cyanocobalamin Injection) 1,000 MCG/ML VIAL 1 ML IM Q30D SUPPLEMENT (Reported) Donepezil HCl (Aricept) 5 MG TABLET 1 TAB PO DAILY MEMORY (Reported) Ferrous Sulfate (Unknown Strength) TABLET (Unknown Dose) PO DAILY SUPPLEMENT (Reported) Folic Acid 1 MG TABLET 1 TAB PO DAILY SUPPLEMENT (Reported) Folic Acid (Unknown Strength) CAPSULE (Unknown Dose) PO DAILY SUPPLEMENT ( Reported) Triage Note: PATIENT BIBA AFTER HER 24 HOUR CARE-TAKER, TERRI NOTICED SLURRED SPEECH, BLANK STARE, AND SLUMPED IN CHAIR. PATIENT ARRIVES AWAKE, ALERT AND UNCOOPERATIVE, WANTING TO LEAVE. FINGERSTICK BLOOD SUGAR =94. HANDGRASPS STRONG BILATERALLY. NO FACIAL DROOP NOTED. PATIENT DISORIENTED TO TIME,PLACE. Triage Nurses Notes Reviewed? yes Onset: BOARDING MOTHER Duration: hour(s):, better, constant, continues in ED Severity: severe New Weakness: LUE, LLE HPI: Patient presents for evaluation of a possible stroke. According to the home health aide the patient slumped to one side and had severe weakness. Past History Travel History Traveled to [place] past 21 day No Medical History Any Pertinent Medical History? see below for history Neurological: dementia EENT: NONE Cardiovascular: hyperlipidemia Respiratory: NONE Gastrointestinal: colitis, diverticulitis Hepatic: NONE Renal: NONE Musculoskeletal: disk herniation Psychiatric: NONE Endocrine: NONE Blood Disorders: anemia Cancer(s): NONE HYPERBARIC TECHNOLOGIST/Reproductive: NONE History of MRSA: No History of VRE: No History of CDIFF: No Surgical History Surgical History: appendectomy, hysterectomy (partial), laminectomy (cervical) Psychosocial History Who do you live with Patient/Self Services at Home None What is your primary language Kinyarwanda Tobacco Use: Never used Family History Family History, If Any: No Known Family History. Hx Contributory? No Review of Systems Review of Systems Constitutional: Reports: no symptoms. EENTM: Reports: no symptoms. Respiratory: Reports: no symptoms. Cardiovascular: Reports: no symptoms. GI: Reports: no symptoms. Genitourinary: Reports: no symptoms. Musculoskeletal: Reports: no symptoms. Skin: Reports: no symptoms. Neurological/Psychological: Reports: see HPI. Hematologic/Endocrine: Reports: no symptoms. Immunologic/Allergic: Reports: no symptoms. All Other Systems: Reviewed and Negative Physical Exam Physical Exam General Appearance: SEE BELOW Cranial Nerves: SEE BELOW Comments: Gen.: Well-nourished, well-developed, no acute respiratory distress. Head: Normocephalic, atraumatic. Eyes: Normal inspection bilaterally, PERRLA, EOMI, no visual deficits by confrontation Ears: Normal inspection bilaterally Nose: Normal inspection Throat/mouth : Moist mucosa Face: No facial droop Neck: Supple, full range of motion, no goiter, no carotid bruits, equal carotid pulses Heart: Regular rate and rhythm, no murmurs rubs or gallops Lungs: Clear to auscultation bilaterally with normal air entry Chest: Nontender Back: Normal range of motion Abdomen: Soft, nontender, nondistended, normal bowel sounds Extremities: Normal range of motion grossly, equal radial pulses, no cyanosis clubbing or edema, normal hand grasp bilaterally Neurologic: Cranial nerves grossly intact, speech is clear Skin: warm and dry Psychiatric: Calm, cooperative, no apparent delusions or hallucinations Core Measures CVA/TIA Diagnosis: Yes Swallow Evaluation Pass Sepsis Present: No Sepsis Focused Exam Completed? No Progress Differential Diagnosis: cva, tia Plan of Care: Orders Procedure Date/time Status Telemetry/Sanitarian Inspector 08/18 2106 Active PARTIAL THROMBOPLASTIN TIME 08/18 2106 Complete PROTHROMBIN TIME 08/18 2106 Complete COMPREHENSIVE METABOLIC PANEL 08/18 2106 Complete CBC WITHOUT DIFFERENTIAL 08/18 2106 Complete EKG 08/18 2106 Active Current Medications Sig/Isael Start time Last Medication Dose Stop Time Status Admin Aspirin 81 MG ONCE ONE 08/18 2244 UNVr (Aspirin) 02/02 2246 Sodium Chloride 500 ML BOLUS ONE 08/18 2244 UNVr (Normal Saline 0.9%) 08/18 2344 Laboratory Tests 08/18/17 2151: Anion Gap 16, Estimated GFR > 60, BUN/Creatinine Ratio 26.0 H, Glucose 92, Calcium 9.2, Total Bilirubin 0.2, AST 19, ALT 21, Alkaline Phosphatase 53, Total Protein 6.8, Albumin 3.8, Globulin 3.0, Albumin/Globulin Ratio 1.3, PT 11.0, INR 1.05, APTT 25, CBC w Diff NO MAN DIFF REQ, RBC 5.14, MCV 80.1 L, MCH 25.1 L, MCHC 31.3 L, RDW 21.5 H, MPV 7.2 L, Gran % 63.1, Lymphocytes % 26.6, Monocytes % 8.0, Eosinophils % 1.4, Basophils % 0.9, Absolute Granulocytes 5.0, Absolute Lymphocytes 2.1, Absolute Monocytes 0.6, Absolute Eosinophils 0.1, Absolute Basophils 0.1 Initial ED EKG: NSR, no ST T wave changes Prior EKG: unchanged Comments: 08/18/2017 9:11:25 PM patient's case discussed with Dr. Laird who feels that given the substantial improvement in patient's symptoms that she is not an appropriate candidate for TPA. 08/18/2017 9:29:17 PM PER RADIOLOGY-POSSIBLE THROMBUS IN LEFT MED CEREBRAL ARTERY DISTAL M1 TO M2 SEGMENT. Neurologist paged. 08/18/2017 10:47:10 PM PATIENT'S CASE DISCUSSED WITH THE STROKE SALES DEPARTMENT SUPERVISOR DR MARTIN. I have also discussed this plan of care with this patient's conservator. She has been accepted in transfer [facility] for endovascular intervention backup. Departure Departure Disposition: OTHER GENERAL HOSPITAL (ACUTE) Condition: Stable Clinical Impression Primary Impression: TIA (transient ischemic attack) Qualifiers: Transient cerebral ischemia type: unspecified Qualified Code: G45.9 - Transient cerebral ischemic attack, unspecified Secondary Impressions: Cerebral thrombosis Referrals: Amara HODGES,Layton Castillo (PCP/Family) Departure Forms: Customer Survey General Discharge Information Critical Care Note Critical Care Note Critical Care Time: 30-74 min
--- NOTE | 2017-08-18 21:34 | CT SCAN REPORT ---
EXAMINATION: CT HEAD WITHOUT CONTRAST CLINICAL INFORMATION: Slurred speech. Lifting to one side. COMPARISON: None TECHNIQUE: Contiguous axial imaging was performed from the skull base to vertex without intravenous administration of contrast. DLP: 625 mGy-cm FINDINGS: Focal hyperdensity is present within the distal M1 segment of the left middle cerebral artery extending into the immediately proximal M2 segments of the left middle cerebral artery within the left sylvian fissure. (Axial image [id number]) these findings are suspicious for dense thrombus in situ. No definitive cytotoxic edema of the brain parenchyma is visualized. No intracranial hemorrhage is noted. Mild diffuse commensurate prominence of ventricles and sulci is present. The orbits and globes are normal in appearance. Soft tissue density likely representing a mucosal retention cyst measuring approximately 1 cm in diameter is present in the left maxillary sinus but not fully included in the image [id number]. Partial opacification of a right lateral lateral sphenoid air cell is noted. The mastoid air cells and middle ear cavities are clear. IMPRESSION: 1. Borderline finding suspicious for hyperdense thrombus in situ within the distal M1 segment of the left middle cerebral artery extending to the proximal M2 segments of the left middle cerebral artery. No evidence of cytotoxic edema or acute infarcts of the brain. No intracranial hemorrhage. This critical result was discussed with Ray Bee MD by telephone at 08/18/2017 9:30 PM and it was ascertained that the content and urgency of the report was understood at the time of direct communication.
[2017-08-18] MEDS ORDERED: UCERIS9 M1 PO (21:36)
[2017-08-18] MEDS ORDERED: VITAMIN D5000 UNIT PO (21:37)
[2017-08-18] MEDS ORDERED: FERROUS SULFAT325 M3 PO (21:38)
[2017-08-18] MEDS ORDERED: FOLIC ACID0.8 M1 PO (21:38)
[2017-08-18 22:07] LABS: ABSOLUTE BASOPHIL COUNT 0.1 /CUMM (0.0-0.2); ABSOLUTE EOSINOPHIL COUNT 0.1 /CUMM (0.0-0.7); ABSOLUTE LYMPH COUNT 2.1 /CUMM (1.2-3.4); ABSOLUTE MONOCYTE COUNT 0.6 /CUMM (0.10-0.60); BASOPHIL % 0.9 % (0.0-2.0); EOSINOPHIL % 1.4 % (0-5); GRANULOCYTE % 63.1 % (42.2-75.2); HEMATOCRIT 41.2 % (37-47); MEAN CORPUSCULAR HGB 25.1 PG (27.0-31.0); MEAN CORPUSCULAR HGB CONC 31.3 G/DL (33.0-37.0); MEAN CORPUSCULAR VOLUME 80.1 FL (81.0-99.0); MEAN PLATELET VOLUME 7.2 FL (7.4-10.4); PLATELET COUNT 335 /CUMM (130-400); RBC DISTRIBUTION WIDTH 21.5 % (11.5-14.5); RED BLOOD CELL CT 5.14 /CUMM (4.20-5.40); WHITE BLOOD CELL COUNT 7.9 /CUMM (4.8-10.8)
[2017-08-18 22:15] LABS: PTT 25 SEC (25-37)
[2017-08-18 23:11] VITALS: BP 128/68
== END 2017-08-18 23:48 | disposition short-term general hospital (02) ==
LOC: ERH 20:25
PROVIDERS: Emergency Medicine
DX: G45.9 Transient cerebral ischemic attack, unspecified (principal); I66.9 Occlusion and stenosis of unspecified cerebral artery; R53.1 Weakness; D64.9 Anemia, unspecified; F03.90 Unspecified dementia, unspecified severity, without behavioral disturbance, psychotic disturbance, mood disturbance, and anxiety
CPT/HCPCS: 93005; 93010; 99291; J3490